=== PATIENT | female | born 1985 | race Caucasian/White ===

== ENCOUNTER → 2019-10-01 13:46 | Outpatient (REF) | payer OTHER, SELFPAY | LOC: ANHLAB 13:46 | PROVIDERS: PCP Physician Assistant; Visit Provider Nurse Practitioner | DX: R22.9 Localized swelling, mass and lump, unspecified (principal) | CPT/HCPCS: 88304 ==

== ENCOUNTER 2022-03-25 14:30 | Outpatient (CLI) | payer OTHER, SELFPAY ==
--- NOTE | 2022-04-12 21:39 | WPDHOMESLEEP ---
Sleep Study - Home Unattended Date of Study: 03/25/22 Ordering Provider: KARLA Seaman Interpreting Provider: Cielo Garcia DO Home Sleep Study Type: Watch PAT Height: 1.7 m Weight: 70.76 kg Body Mass Index: 24.4 Neck Circumference (inches): 13.25 Reason for Sleep Study Insomnia, daytime hypersomnia Sleep History The patient is a 36-year-old female with anxiety, depression, ADHD and insomnia that had a sleep study ordered by her primary care for evaluation of sleep apnea. *The patient did not complete the sleep intake forms.* [facility] Past Medical History Medical History ADHD Anxiety and depression Social History Social History Smoking status: Never smoker Alcohol intake: current Drinks per week: 7 Substance use: never Medications Home Medications Medication Instructions Recorded Confirmed Type trazodone 50 mg tablet 50 mg PO BID 10/01/19 06/10/21 History Sleep Procedure The sleep study was completed using WatchPAT a technically adequate device with seven channels: peripheral arterial tone, actigraphy, body position, snore, respiratory movement, pulse oximetry, sleep staging, and heart rate. Prior to using the device, the patient received verbal and written instructions for its application and was provided with the help desk phone number for additional telephonic instruction with 24-hour availability of qualified personnel to answer questions. The study was scored using CMS guidelines. Sleep Architecture The patient had a total recording time of 9 hours 32 minutes and a total sleep time of 7 hours 1 minutes. The sleep efficiency was 73.54%. Sleep latency was 23 minutes and REM latency was 240 minutes. The patient had 9 awakenings. The patient spent 83.6% of total sleep time in light sleep, 5.59% of total sleep time in deep sleep and 10.81% of total sleep time in REM sleep. The patient spent 329.5 minutes, 78.3% of total sleep time in the supine position. Respiratory Analysis The patient had an overall AHI of 1.2 and central apnea index of 0. The REM AHI was 2.7. The patient had an overall RDI (respiratory disturbance index) of 4.9. No Reza-Jung respirations were seen. Oximetry Data The patient had an average oxygen saturation of 96% with a minimum of 93% and maximum of 100%. The patient had 8 desaturation resulting in an oxygen desaturation index of 1.2. All of the desaturations were between 4-9%. The patient spent 0 minutes with an oxygen saturation less than 88%. Snoring Profile Snoring was present throughout the majority of the study. Cardiac Profile The patient had an average pulse of 70 beats per minute with a minimum pulse of 42 beats per minute and a maximum pulse of 106 beats per minute. Assessment and Plan Assessment and Plan (1) Daytime hypersomnia: Code(s): G47.10 - Hypersomnia, unspecified Status: Acute Assessment and Plan: The patient had an overall AHI of 1.2 with desaturation down to 93%. This is not consistent with sleep disordered breathing. However, due to the patient's significant daytime symptoms, I recommend that the patient have an in-lab Split Study for further evaluation. I recommend that the patient be given a hypnotic (Lunesta 2-3 mg or Ambien 10 mg) for the night of the sleep study due to the patient's insomnia. Data The data obtained during this sleep study is adequate for interpretation. Certification This sleep study has been reviewed by a board certified sleep medicine physician.
[2022-04-12 21:43] VITALS: BMI 24.4
== END 2022-03-29 14:41 | disposition home or self-care (01) ==
PROVIDERS: PCP Physician Assistant
DX: G47.9 Sleep disorder, unspecified (principal); G47.10 Hypersomnia, unspecified
CPT/HCPCS: 95800

== ENCOUNTER 2022-05-17 01:17 | Day surgery (SDC) | payer OTHER, SELFPAY ==
[2022-05-05 16:01] VITALS: BMI 24.7
[2022-05-17 11:14] VITALS: BP 112/66; PULSE 77; RESP 16; TEMP 36.8; O2SAT 99
--- NOTE | 2022-05-17 11:53 | PM.HPGS ---
History of Present Illness History of Present Illness Consent: Risks, benefits, and alternatives have been discussed and questions answered. Patient agrees to proceed with procedure. Chief complaint: hemorrhoid Narrative: Martine Villafana is a 36 year old female here for IRC of internal hemorrhoids, she had banding of hemorrhoids in the past Review of Systems Constitutional: Constitutional: Denies headache(s) and Denies weakness Eyes: Eyes: Denies blurry vision ENT: Reports Normal hearing present, Denies headache(s) and Denies neck pain Cardiovascular: Cardiovascular: Denies chest pain and Denies dyspnea Respiratory: Respiratory: Denies dyspnea Gastrointestinal: Gastrointestinal: Reports no additional gastrointestinal complaints Genitourinary: Genitourinary: Denies dysuria Musculoskeletal: Musculoskeletal: Denies neck pain Integumentary/Breasts: Skin/Breast: Denies dry skin Neurologic: Reports Normal hearing present, Denies headache(s) and Denies weakness Psychiatric: Psychiatric: Denies anxiety Endocrine: Endocrine: Denies change in body appearance Hematologic/Lymphatic: Hematologic/Lymphatic: Denies easy bleeding Allergic/Immunologic: Allergic/Immunologic: Denies urticaria PMF Past Medical History Medical History (Updated 05/17/22 @ 11:54 by Dino Heath MD) ADHD Anxiety and depression Hemorrhoid Social History Social History Smoking status: Never smoker Alcohol intake: current Drinks per week: 7 Substance use: never Substance use type: does not use Living arrangements: with family Additional living arrangements comments: spouse and 3 year old twins Spiritual care concerns: No Meds Home Medications and Allergies Home Medications Medication Instructions Recorded Confirmed Type trazodone 50 mg tablet 50 mg PO BID 10/01/19 05/17/22 History fluoxetine 10 mg capsule 10 mg PO DAILY 05/05/22 05/17/22 History lorazepam 0.5 mg tablet 0.5 mg PO PRN PRN Anxiety 05/05/22 05/17/22 History Allergies Allergy/AdvReac Type Severity Reaction Status Date / Time cephalexin Allergy Intermediate Hives Verified 05/17/22 11:10 Vital Signs Vital Signs - 24 hr 05/17/22 11:14 Temperature 98.2 F Pulse Rate 77 Respiratory Rate 16 Blood Pressure 112/66 Pulse Oximetry 99 Oxygen Delivery Room Air Exam Const: General: comfortable and no acute distress HENMT: Face/Nose/Sinus: Normal nares present Eyes: General: appearance normal, both eyes and all related structures Neck: Neck: no JVD Resp: Auscultation: clear to auscultation bilaterally Cardio: Rate: regular rate Rhythm: regular rhythm GI: Inspection: non-distended GI Palp: Yes Soft to palpation Skin: General skin exam: normal color Neuro: General: gait normal Speech: normal speech Extrem: General: normal to inspection Psych: Mental Status: mental status grossly normal Assessment and Plan Assessment and plan (1) Hemorrhoid: Code(s): K64.9 - Unspecified hemorrhoids Status: Acute Assessment and Plan: IRC
--- NOTE | 2022-05-17 11:54 | W.PM.PROC2 ---
Procedure Note - Detailed Date of Procedure 05/17/22 Pre-op Diagnosis hemorrhoid Post-op Diagnosis Same Procedure Performed IRC of internal hemorrhoids Surgeon Dino Heath MD Description of Procedure no fissure or lesions in anus, no bleeding. Then I introduced anoscope, found grade II internal hemorrhoids and advanced IRC probe, hemorrhoids treated 1.5 seconds x5
== END 2022-05-17 11:57 | disposition home or self-care (01) ==
PROVIDERS: PCP Physician Assistant; Visit Provider Internal Medicine Gastroenterology
PROC: (CPT 46930; principal; 2022-05-17 11:45)
DX: K64.1 Second degree hemorrhoids (principal); F90.9 Attention-deficit hyperactivity disorder, unspecified type; F41.9 Anxiety disorder, unspecified; F32.A Depression, unspecified
CPT/HCPCS: 46930

== ENCOUNTER 2022-06-20 08:00 | Outpatient (NON) | payer OTHER, SELFPAY | END 2022-06-20 08:01 | disposition home or self-care (01) | LOC: ANHLAB 06-22 13:15 | PROVIDERS: PCP Physician Assistant; Visit Provider Nurse Practitioner | DX: L72.0 Epidermal cyst (principal) | CPT/HCPCS: 88304 ==

== ENCOUNTER 2023-08-25 19:15 | Emergency (ER) | payer OTHER, SELFPAY ==
[2023-08-25 19:20] VITALS: BP 124/66; PULSE 105; RESP 18; TEMP 37.7; O2SAT 99
--- NOTE | 2023-08-25 19:58 | ED.URI ---
HPI - URI/Sore Throat General Chief Complaint: Upper Respiratory Infection Stated Complaint: cough/sob Time Seen by Provider: 08/25/23 19:30 Source: patient Mode of arrival: ambulatory Limitations: no limitations History of Present Illness HPI Narrative: 37-year-old female presents with complaint of cough, postnasal drainage for 12 days. No chest pain or shortness of breath. Taking DayQuil NyQuil cold and flu with no relief of symptoms. Afebrile. Denies pain. All systems reviewed and negative except as noted above. Related Data Home Medications Medication Instructions Recorded Confirmed lorazepam 0.5 mg tablet 0.5 mg PO PRN PRN Anxiety 05/05/22 08/25/23 fluoxetine 20 mg capsule 20 mg PO DAILY 08/25/23 08/25/23 Allergies Allergy/AdvReac Type Severity Reaction Status Date / Time cephalexin Allergy Intermediate Hives Verified 08/25/23 19:33 Review of Systems Review of Systems: CONSTITUTIONAL: Denies fever. Reports chills. Denies sweats. EYES: Denies visual changes, redness, or discharge. ENT: Reports rhinorrhea, congestion, postnasal drainage. Denies sore throat, or otalgia. CARDIOVASCULAR: Denies chest pain, palpitations, or edema. RESPIRATORY: Reports cough. Denies dyspnea. GASTROINTESTINAL: Denies abdominal pain, nausea, vomiting, or diarrhea. GENITOURINARY: Denies dysuria or hematuria. SKIN: Denies rash or itching. MUSCULOSKELETAL: Denies back pain, joint pain, or myalgia. NEUROLOGIC: Denies headache, numbness, or weakness. PSYCHIATRIC: Denies anxiety or depression. All other systems reviewed are negative, except as documented in HPI. [facility] Past Medical History Medical History (Updated 08/25/23 @ 19:43 by Lorenza Gordon NP) ADHD Anxiety and depression Hemorrhoid Social History Social History Smoking status: Never smoker Alcohol intake: current Drinks per week: 7 Substance use: never Substance use type: does not use Living arrangements: with family Additional living arrangements comments: spouse and 3 year old twins Spiritual care concerns: No Comments At time of signature, agree with nursing past medical, surgical, social and family history. There is no relevant family history pertinent to the presenting complaint. Exam Narrative: GENERAL: This is a well-nourished, well-developed patient, in no apparent distress. HEAD: normocephalic, atraumatic. EYES: PERRL. Sclera clear/white. Vision is grossly intact. EARS: External ears normal, auditory canals clear and without drainage, fluid bilateral TMs without erythema or perforation. Hearing grossly intact. NOSE: External nose normal with clear nasal drainage, erythema to bilateral nares without significant swelling. THROAT: Mucous membranes moist, clear postnasal drainage without erythema or swelling, no exudates NECK: Neck supple, non-tender without lymphadenopathy, masses or thyromegaly. CARDIOVASCULAR: Regular rate and rhythm without murmurs, gallops, or rubs. RESPIRATORY: Clear to auscultation. Breath sounds equal bilaterally. No wheezes, rales, or rhonchi. SKIN: warm, Dry, intact with no suspicious lesions or rash, good texture and turgor. NEURO: awake, alert, and oriented to person, place and time. There were no obvious focal neurologic abnormalities. EXTREMITIES: No joint tenderness, effusion, or edema noted. Course Course Level of Care: Express Care Visit Vital Signs Vital signs: Vital Signs Temperature 37.7 C H 08/25/23 19:20 Pulse Rate 105 H 08/25/23 19:20 Respiratory Rate 18 08/25/23 19:20 Blood Pressure 124/66 08/25/23 19:20 Pulse Oximetry 99 08/25/23 19:20 Oxygen Delivery Room Air 08/25/23 19:20 Temperature 37.7 C H 08/25/23 19:20 Pulse Rate 105 H 08/25/23 19:20 Respiratory Rate 18 08/25/23 19:20 Blood Pressure 124/66 08/25/23 19:20 Pulse Oximetry 99 08/25/23 19:20 Oxygen Delivery Room Air 08/25/23
== END 2023-08-25 19:45 | disposition home or self-care (01) ==
PROVIDERS: Emergency Provider Nurse Practitioner Family; PCP Physician Assistant
DX: H65.03 Acute serous otitis media, bilateral (principal); J20.9 Acute bronchitis, unspecified; F41.9 Anxiety disorder, unspecified; F32.A Depression, unspecified; Z79.899 Other long term (current) drug therapy
CPT/HCPCS: 99213; G0463

== ENCOUNTER 2024-02-06 01:08 | Day surgery (SDC) | payer OTHER, SELFPAY ==
[2024-01-19 12:06] VITALS: BMI 25.0
[2024-02-06 12:27] VITALS: BP 102/67; PULSE 83; RESP 18; TEMP 36.2; O2SAT 98
--- NOTE | 2024-02-06 12:35 | P.PNAN_ITS ---
Anes - Initial Pre Proc Eval Procedure: Operation Date: 02/06/24 14:00 Proposed Procedures p Esophagogastroduodenoscopy & Colonoscopy - Dino Heath MD Date/Time: 02/06/24 12:35 Surgeon: Dino Heath MD Pre Op Diagnosis: Melena, GERD, Abdominal pain Patient Data Age: 38 Gender: F Height: 1.7 m Weight: 69.6 kg Last Vital Signs Temp 36.2 C L 02/06/24 12:27 Pulse 83 02/06/24 12:27 Resp 18 02/06/24 12:27 BP 102/67 02/06/24 12:27 Pulse Ox 98 02/06/24 12:27 O2 Del Method Room Air 02/06/24 12:27 Allergies Allergy/AdvReac Type Severity Reaction Status Date / Time cephalexin Allergy Intermediate Hives Verified 02/06/24 12:26 Home Medications Medication Instructions Recorded Confirmed Type lorazepam 0.5 mg tablet 0.5 mg PO PRN PRN Anxiety 05/05/22 01/19/24 History fluoxetine 20 mg capsule 20 mg PO DAILY 08/25/23 01/19/24 History dextroamphetamine-amphetamine 5 mg 5 mg PO BID PRN Anxiety 12/12/23 01/19/24 History tablet (Adderall) semaglutide 1 mg/dose (4 mg/3 mL) 1 mg subcut WEEKLY 01/19/24 01/19/24 History subcutaneous pen injector (Ozempic) Patient hx anesthesia problems: none Family hx anesthesia problems: none Results Review: All pre-operative results and documents have been reviewed as part of the pre- operative evaluation. [facility] Past Medical History Medical History ADHD Anxiety and depression Hemorrhoid Social History Social History Smoking status: Never smoker Alcohol intake: current Drinks per week: 2 Substance use: never Substance use type: does not use Living arrangements: other Additional living arrangements comments: with sp Spiritual care concerns: No Anes - Eval Final PreProcedure Day of Procedure 02/06/24 12:35 Patient weight: normal Heart: regular rate and rhythm Lungs: clear to auscultation Airway: Mallampati scale class II Neurological: alert and oriented Last oral intake: >/= 8 hours ASA classification: II Emergent: no Anesthetic plan: proceed Anesthesia type and monitoring: general GIVS and standard monitoring Results Review: All pre-operative results and documents have been reviewed as part of the pre- operative evaluation. Informed Consent: The patient's anesthetic plan and its attendant risks and benefits were discussed with the patient/family/POA. Questions were solicited and answers provided to the satisfaction of the patient/family/POA.
[2024-02-06] MEDS: LACTATED RINGERS 1,000 ML 150 ML IV CONT (12:47)
--- NOTE | 2024-02-06 12:55 | PM.HPGS ---
History of Present Illness History of Present Illness Consent: Risks, benefits, and alternatives have been discussed and questions answered. Patient agrees to proceed with procedure. Chief complaint: Melena, GERD, Abdominal pain Narrative: Martine Villafana is a 38 year old female with gerd using omeprazole only as needed, never had egd. Also intermittent rectal bleeding, last colonoscopy 4 years with hemorrhoids Review of Systems Review of Systems: All systems reviewed & are unremarkable except as noted in HPI and below PMFSH Past Medical History Medical History (Updated 02/06/24 @ 12:56 by Dino Heath MD) ADHD Anxiety and depression GERD (gastroesophageal reflux disease) Hemorrhoid Social History Social History Smoking status: Never smoker Alcohol intake: current Drinks per week: 2 Substance use: never Substance use type: does not use Living arrangements: other Additional living arrangements comments: with sp Spiritual care concerns: No Meds Home Medications and Allergies Home Medications Medication Instructions Recorded Confirmed Type lorazepam 0.5 mg tablet 0.5 mg PO PRN PRN Anxiety 05/05/22 01/19/24 History fluoxetine 20 mg capsule 20 mg PO DAILY 08/25/23 01/19/24 History dextroamphetamine-amphetamine 5 mg 5 mg PO BID PRN Anxiety 12/12/23 01/19/24 History tablet (Adderall) semaglutide 1 mg/dose (4 mg/3 mL) 1 mg subcut WEEKLY 01/19/24 01/19/24 History subcutaneous pen injector (Ozempic) Allergies Allergy/AdvReac Type Severity Reaction Status Date / Time cephalexin Allergy Intermediate Hives Verified 02/06/24 12:26 Vital Signs Vital Signs - 24 hr 02/06/24 12:27 Temperature 97.1 F L Pulse Rate 83 Respiratory Rate 18 Blood Pressure 102/67 Pulse Oximetry 98 Oxygen Delivery Room Air Exam Const: General: comfortable and no acute distress HENMT: Face/Nose/Sinus: Normal nares present Eyes: General: appearance normal, both eyes and all related structures Neck: Neck: no JVD Resp: Auscultation: clear to auscultation bilaterally Cardio: Rate: regular rate Rhythm: regular rhythm GI: Inspection: non-distended GI Palp: Yes Soft to palpation Skin: General skin exam: normal color Neuro: General: gait normal Speech: normal speech Extrem: General: normal to inspection Psych: Mental Status: mental status grossly normal Assessment and Plan Assessment and plan (1) Lower GI bleed: Code(s): K92.2 - Gastrointestinal hemorrhage, unspecified Status: Acute Assessment and Plan: colonoscopy (2) Hematochezia: Code(s): K92.1 - Melena Status: Acute (3) GERD (gastroesophageal reflux disease): Code(s): K21.9 - Gastro-esophageal reflux disease without esophagitis Status: Acute Assessment and Plan: egd
--- NOTE | 2024-02-06 13:14 | SUR.OPER ---
EGD end 1307 and colon start 1312.
[2024-02-06 13:24] VITALS: BP 91/56; PULSE 69; RESP 23; O2SAT 100
[2024-02-06 13:34] VITALS: BP 99/65; PULSE 66; RESP 21; O2SAT 100
[2024-02-06 13:44] VITALS: BP 97/69; PULSE 71; RESP 18; O2SAT 100
== END 2024-02-06 13:54 | disposition home or self-care (01) ==
PROVIDERS: PCP Physician Assistant; Referring Provider Nurse Practitioner; Visit Provider Internal Medicine Gastroenterology
PROC: 0DJ08ZZ Inspection of Upper Intestinal Tract, Via Natural or Artificial Opening Endoscopic (ICD-10-PCS; CPT 43235; principal; 2024-02-06 14:00)
DX: K92.1 Melena (principal); K21.9 Gastro-esophageal reflux disease without esophagitis; R10.9 Unspecified abdominal pain; K29.70 Gastritis, unspecified, without bleeding; K64.8 Other hemorrhoids; F90.9 Attention-deficit hyperactivity disorder, unspecified type; F41.8 Other specified anxiety disorders
CPT/HCPCS: 43239; 45378; 88305; J2001; J2704; J7120

== ENCOUNTER 2025-01-24 13:02 | Emergency (ER) | payer OTHER, SELFPAY ==
--- OUTSIDE RECORDS SUMMARY | 2025-01-24 13:06 | XMS_ITS | Referral Summary ---
Author Organization [facility] Address [address] [place] [address] Care Team Providers Care Crisis Therapist Name Role Phone Jerri Ventura Primary Care Pr ovider Allergies Active Allergy Reactions Criticality Noted Date Comments Cephalexin Hives,Rash Medium 12/27/2016 Medications melatonin 5 mg capsule Take by mouth nightly Active levonorgestrel (MIRENA INTRAUTERINE) Mirena Active buPROPion (WELLBUTRIN) 75 mg tablet 9 Active dextroamphetami ne-amphetamine (ADDERALL) 10 mg tablet Take 1 tablet (10 mg total) by mouth 2 (two) times a day 1 Active LORazepam (ATIVAN) 0.5 mg tablet TAKE 1 TABLET 3 TIMES A DAY BY ORAL ROUTE NEEDED. 2 Active FLUoxetine (PROzac) 20 mg capsule Take by mouth daily 2 Active meloxicam (MOBIC) 15 mg tablet TAKE 1 TABLET (15 MG TOTAL) BY MOUTH DAILY. 30 tablet 3 Active HYDROcodone-nemo taminophen (NORCO) 5-325 mg per tablet 3 Active famotidine (PEPCID) 20 mg tablet famotidine 20 mg tablet TAKE 1 TABLET BY MOUTH TWICE A DAY Active citalopram (CeleXA) 20 mg tablet 3 Active omeprazole (PriLOSEC) 40 mg capsule 3 Active flibanserin 100 mg tablet Take 100 mg by mouth nightly Take one tablet nightly, stop after 8 weeks if no improvement 30 tablet 11 Active Active Problems Problem Noted Date Diagnosed Date Generalized anxiety disorder 11/30/2022 Major depressive disorder 11/30/2022 Tear of articular cartilage of right knee as cur rent injury 07/27/2022 Sleep disorder 04/08/2015 Attention deficit hyperactivity disorder 015 Smoking 08/26/2014 Resolved Problems Problem Noted Date Diagnosed Date Resolved Date Upper respiratory infection 05/08/2023 12/16/2023 Fatigue 11/30/2022 12/16/2023 Candidiasis of vagina 09/15/20222023 Right knee pain 06/29/2022 12/16/2023 Cough 05/13/2022 12/16/2023 Acute sinusitis 04/08/2022 12/16/2023 Metatarsalgia 01/17/2022 12/16/2023 Pain in lower limb 01/17/2022 Pruritic disorder 11/01/2021 12/16/2023 Rash 11/01/2021 12/16/2023 Mixed anxiety and depressive disorder 09/24/2019 12/16/2023 Supervision of other normal , antepartum 06/26/2018 06/29/2018 Overview (06/26/2018): [] 1hr GCT at 24-28wks [] Flu Shot [] Tdap (27-36wks) [] Genetic Screening: [] Rhogam (if Rh neg): [] GBS at 36 wks: [] [] control method: Dysmenorrhea 04/08/2015 12/16/2023 Dyspareunia 04/08/2015 12/16/2023 Menorrhagia 04/08/2015 12/16/2023 Pelvic pain in female 04/08/20152023 Procreative management 04/08/201512/15 Anxiety 08/26/2014 12/16/2023 Dichorionic diamniotic twin in third trimester 12/16/2023 37 weeks gestation of 12/16/2023 Breech presentation, no version 12/16/2023 Social History Tobacco Use Types Packs/Day Years Used Date Smoking Tobacco: Former Smokeless Tobacco: Never Alcohol Use Standard Drinks/Week Comments Never 0 (1 standard drink = 0.6 oz pur e alcohol) AUDIT-C Answer Date Recorded Frequency of Alcohol Consumption Never 11/08/2018 Average Number of Drinks Not on file 019 Frequency of Binge Drinking Not on file 10/13 Comments No Sex and Gender Information Value Date Recorded Sex Assigned at Not on file Legal Sex Female 9:37 AM PROPOSAL LEAD WRITER Gender Identity Not on file Sexual Orientation Not on file Last Filed Vital Signs Vital Sign Reading Time Taken Comments Blood Pressure 120/70 04/02/2024 4:02 PM CDT Pulse 76 12/24/2020 9:06 AM CDT Temperature 36.9 C (98.4 F) 01/07/2019 8:45 AM CDT Respiratory Rate 18 01/07/2019 8:45 AM CDT Oxygen Saturation 97% 01/06/2019 7:30 PM CDT Inhaled Oxygen Concentration - - Weight 68 kg (150 lb) 04/02/2024 4:02 PM CDT Height 170.2 cm (5' 7) 06/29/2022 2:13 PM PROPOSAL LEAD WRITER Body Mass Index 23.49 06/29/2022 2:13 PM PROPOSAL LEAD WRITER Plan of Treatment Not on file [place] [address] [facility] CHOICE PLUS [facility] CHOICE [place] [address] Advance Directives For more information, please contact: [phone] * Full Code (Latest Code Status on File) Date Activated Date Inactivated Comments 01/05/2019 2:45 PM 01/07/2019 4:48 PM * Full Code Date Activated Date Inactivated Comments 01/04/2019 5:23 PM 01/05/2019 2:45 PM Full CPR in case of cardiopulmonary arrest Care Teams Crisis Therapist Relationship Specialty Start Date End Date Jerri Ventura PA PCP - General Physician Mottle Lay Up Operator 01/08/20
--- OUTSIDE RECORDS SUMMARY | 2025-01-24 13:06 | XMS_ITS | Clinical Summary ---
Author Organization [facility] Address [address] [place] [address] Care Team Providers Care Animal Hospital Clerk Name Role Phone Jerri Ventura Primary Care [...] of 12/16/2023 Breech presentation, no version 12/16/2023 Surgical History Surgery Date Site/Laterality Comments APPENDECTOMY 08/14/2006 - 08/13/2007 SINUS SURGERY 08/14/2015 - 08/13/2016 PRE-SACRAL NEURECTOMY 08/14/2016 - 08/13/2017 laparoscopic TONSILLECTOMY 08/14/2001 - 08/13/2002 LAPAROSCOPY 08/14/2006 - 08/13/2007 Cautery of endometriosis PELVIC LAPAROSCOPY 08/14/2016 - 08/13/2017 Bilateral Excision endo, adhesiolysis, presacral neurectomy, cysto-spe an adhesiolysis as w as a presacral neurectomy by a specialist in endometriosis. LAPAROSCOPY FOR ECTOPIC 08/14/2014 - 08/13/2015 Left OVARIAN ectopic-ovary salvaged OPERATIVE HYSTEROSCOPY 02/11/2018 - 03/13/2018 IUD removal Medical History Medical History Date Comments Depression hx of depression and anxiety Endometriosis Migraine Anxiety ADD (attention deficit disorder) Family history of breast cancer History of ectopic Lef t ovarian ectopic treated with methotrexate then ovarian sparing surgery History of endometriosis Diagnos ed and cauterized 2006, excised 2016 Family History Medical History Relation Name Comments Breast cancer Maternal Grandmother Diabetes Maternal Grandmother Breast cancer Mother at 65 fro m CHF Diabetes Mother Heart failure Mother Breast cancer Mother's Sister Diabetes Mother's Sister Diabetes Paternal Grandfather Relation Name Status Comments Maternal Grandmother Mother Mother's Sister Paternal Grandfather Social History Tobacco Use Types Packs/Day Years [...] on file Legal Sex Female 9:37 AM INFORMIX DEVELOPER Gender Identity Not on file Sexual Orientation Not on file Obstetrics History Para Term AB IAB SAB Ectopic Multiple Livin g Live Births 2 1 1 1 1 1 2 2 Date Outcome GA Total Labor Labor/2nd/3rd Weight Sex Type Anes PTL Antionette A1 A5 Name Clin 2014 Ectopic 2018 Term 37w 4d 21h 44m 20h 15m/1h 17m/0h 12m 2.6 kg (5 lb 11.7 oz) M Vag-S pont Epidur al N Livin g 9 9 HUEY N,ONE BOYCL ARIND Steve Russell MD Complications:None Delivery Location:[facility] ([facility]) 2018 Term 37w 4d 21h 44m 20h 15m/1h 19m/0h 10m 2.48 kg (5 lb 7.5 oz) F Vag-B reech Epidur al N Livin g 9 9 HUEY N,TWO GIRLC AUGUSTO Steve Dennis MD Complications:None Delivery Location:[facility] Facil [facility] ([facility]) Comments:double footli ng breech extraction of twin 2 Comments # 1: 2014 left ova gabriele ectopic txed with MTX then laparoscopic excision of ectopic with ovarian sparing . # 2: 01/05/2019 37 4/7 weeks, DA/DC twins, SOOL, #1- , boy, Mitchell, 5#12, #2- double footling breech extraction, Ruben, 5#7, epidural, DW at [facility]. Last Filed Vital Signs Vital Sign Reading [...] 170.2 cm (5' 7) 06/29/2022 2:13 PM INFORMIX DEVELOPER Body Mass Index 23.49 06/29/2022 2:13 PM INFORMIX DEVELOPER Plan of Treatment Health Maintenance Due Date Last Done Comments Breast Cancer Screening-Mammogram 1987 Cervical Cancer Screening 1987 Hepatitis C Screening 1987 Varicella Vaccines (1 of 2 - 13+ 2-dose series) 2000 Hepatitis B Screening 2005 Regular Well Visit/Exam 18-64 2005 Depression Screening 01/07/2020 01/06/2019 DTaP/Tdap/Td Vaccine (2 - Td or Tdap) 07/26/2023 07/26/2013 Influenza Vaccine (Season Ended) 2025 07/25/2022, 06/19/2020, 06/20/2019, Additional history exists HPV Vaccines Aged Out No longer eligi ble based on patient's age to complete this topic Pneumococcal vaccine <65 Aged Out No longer eligible based on patient's age to complete this topic Insurance [facility] HMO/PPO Address: [address] [address] [place] [address] [facility] CHOICE [facility]US [facility] HMO/PPO Address: [address] [address] [place] [address] [facility] CHOICE [facility] HMO/PPO Address: [address] [address] [place] [address] [facility] HMO/PPO Address: [address] [address] [place] [address] Advance Directives For more information, please contact: [phone] * Full Code (Latest Code Status on File) Date Activated Date Inactivated Comments 01/05/2019 2:45 PM 01/07/2019 4:48 PM * Full Code Date Activated Date Inactivated Comments 01/04/2019 5:23 PM 01/05/2019 2:45 PM Full CPR in case of cardiopulmonary arrest Care Teams Animal Hospital Clerk Relationship Specialty Start Date End Date Jerri Ventura PA PCP - General Physician Surgical Pathologist 01/08/20
--- OUTSIDE RECORDS SUMMARY | 2025-01-24 13:06 | XMS_ITS | Data Portability ---
Author Organization [facility] Anna Marie Christensen Address [address] [place] [address] Assessment Encounter Date Assessment Date Assessment LastModified by Organization Details LastModified Time 05/07/2024 05/07/2024 pap smear 2023: Dr. Alonso at [facility]. eye exam: overdue dental exam: UTD labs UTD with DR. Lagos. [email or web address] Not available 05/07/2024 10:30:33 Plan of Treatment Reminders Order Date Submit Date Provider Last Modified By Organization Details Last Modified Time Details Appointments None recorded. Lab CMP, serum or plasma 2023 024 [email or web address] [facility], [address], [place], [address], 5 15:25:00 CBC w/ auto diff 2023 024 [email or web address] [facility], [address], [place], [address], 5 15:25:05 vitamin B12 + folate, serum or blood 2023 024 [email or web address] [facility], [address], [place], [address], 5 15:24:53 lipid panel, serum 2023 024 [email or web address] [facility], [address], [place], [address], 5 15:25:14 HbA1c (hemoglobin A1c), blood 2023 024 [email or web address] [facility], [address] [place], [address], 5 15:25:10 Referral None recorded. Procedures None recorded. Surgeries None recorded. Imaging None recorded. Medication Orders fluoxetine 40 mg capsule 2023 024 [id number], [address] [place], [address], 4 10:30:56 Patient TargetsNo targets recorded. Patient InstructionsNo instructions recorded. Reason for Referral None Reported. Problems Name Problem SNOMED Code Status Onset Date Resolution Date Notes Provider Name and Address Organization Details Recorded Time Body mass index 20-24 - normal 858744441 Active 2023 Heidi Javed MA null, [facility] 4 10:04:51 Positive screening for depression on PHQ-9 (Patient Health Questionnai re 9) 0880826812237 00 Active 2023 DEXTER Seaman Attn: Accountin g,[address] [place], [address], [facility] 4 23:47:38 Long-term drug therapy Active 2023 DEXTER Seaman Attn: Accountin g,[address] [place], [address], [facility] 4 23:47:39 Generalized anxiety disorder 66465284 Active 2023 DEXTER Seaman Attn: Accountin g,[address] [place], [address], [facility] 4 23:48:04 Problem Notes None recorded. Procedures Surgical History Date Name Laterality Status Provider Name and Address Organization Details Recorded Time Appendectomy completed ALBERTO Ashby [facility] 05/07/2024 10:03:48 Tonsillectomy completed Heidi Javed MA [facility] 05/07/2024 10:03:52 D & c after delivery completed Heidi Javed MA [facility] 05/07/2024 10:04:05 Imaging Results None recorded. Procedure Notes None recorded. Medical Equipment None Reported. Allergies Allergen ID Allergen Name Allergen Category Reaction Reaction Severity Criticality Documentation Date Start Date Code Code System Note Provider Name and Address Organization Details Recorded Time 412044 cephalexi n medicatio n Not available Not available Not available 05/07/2024 2231 RxNorm Heidi Javed MA null, [facility] 10:06:12 Medications Name Sig Start Date Stop Date Status Note LastModified by Organization Details LastModified Time fluoxetine 40 mg capsule Take 1 capsule every day by oral route. active Not Available Not Available No t Available clobetasol 0.05 % topical cream PLEASE SEE ATTACHED FOR DETAILED DIRECTION S active Not Available Not Available No t Available dextroamphe tamine sulfate 10 mg tablet Take 1 tablet twice a day by oral route. 05/07 completed prn Not Available Not Available Not Available fluoxetine 20 mg capsule TAKE 1 CAPSULE BY MOUTH EVERY DAY 05/07 completed Not Available Not Available Not Available Xyzal 5 mg tablet Take 1 tablet every day by oral route. active Not Available Not Available No t Available testosteron e 200 mg implant pellet Take by implantat ion route. active Not Available Not Available No t Available Ozempic 1 mg/dose (4 mg/3 mL) subcutaneou s pen injector Inject by subcutane ous route. 05/07 completed Not Available Not Available Not Available semaglutide (weight loss) 1 mg/0.5 mL subcutaneou s pen injector Inject 1 mg every week by subcutane ous route. active Not Available Not Available No t Available Vitals Date Recorded Systolic blood pressure Diastolic blood pressure Provider Name and Address Organization Details Last Updated DateTime 05/07/2024 90 mm[Hg] 70 mm[Hg] DEXTER Seaman Attn: Accounting[address] [place], [address], [facility] 05/07/2024 10:28:37 Date Recorded Body weight Body mass index (BMI) Body height Oxygen saturation Oxygen saturation in Arterial blood by Pulse oximetry Heart rate Respiratory rate Systolic blood pressure Diastolic blood pressure Provider Name and Address Organization Details Last Updated DateTime 4 77575.3 8 g 22.6 kg/m2 170.18 cm 99 % 99 % 91 /min 18 /min 120 mm[Hg] 72 mm[Hg] Heidi Javed MA [facility] 10:06:05 Social History Question Answer Notes LastModified by Organizat ion Details LastModified Time Tobacco Smoking Status Former Smoker quit 6 years ago Heidi Javed MA null, [facility] 05/07/2024 10:03:18 Do You Have An Advance Directive? No Information not available 05/07/2024 Are You Blind Or Do You Have Difficulty Seeing? No Information not available 05/07/2024 What Is Your Level Of Caffeine Consumption? Moderate Information not available 05/07/2024 In The 14 Days Before Symptom Onset, Have You Had Close Contact With A Laboratory-confir med COVID-19 While That Case Was Ill? No Information not available 05/07/2024 In The 14 Days Before Symptom Onset, Have You Had Close Contact With A Person Who Is Under Investigation For COVID-19 While That Person Was Ill? No Information not available 05/07/2024 Have You Been To An Area Known To Be High Risk For COVID-19? No Information not available 05/07/2024 Are You Deaf Or Do You Have Serious Difficulty Hearing? No Information not available 05/07/2024 What Type Of Diet Are You Following? REGULAR Information not available 05/07/2024 Are There Any Guns Present In Your Home? No Information not available 05/07/2024 What Was The Date Of Your Most Recent Tobacco Screening? 05/07/2024 Information not available 05/07/2024 What Is Your Current Pack Years? 10packyears Information not available 05/07/2024 Do You Use Your Seat Belt Or Car Seat Routinely? Yes Information not available 05/07/2024 Do You Have Smoke And Carbon Monoxide Detectors In Your Home? Yes Information not available 05/07/2024 How Much Tobacco Do You Smoke? No Information not available 05/07/2024 Do You Use Sunscreen Routinely? Yes Information not available 05/07/2024 Has Tobacco Cessation Counseling Been Provided? No Information not available 05/07/2024 How Many Years Have You Smoked Tobacco? 5 Information not available 05/07/2024 Sex: Female Functional Status Question Answer Note LastModified by Organizat ion Details LastModified Time Do you use any illicit or recreational drugs? No Information not available 05/07/2024 Do you or have you ever used any other forms of tobacco or nicotine? No Information not available 05/07/2024 What is your level of alcohol consumption? Moderate Information not available 05/07/2024 Are you currently employed? Yes Information not available 05/07/2024 Are you able to care for yourself? 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 Occasional Information not available 05/07/2024 Mental Status None recorded. Family History Nothing Reported. Medical History No medical history recorded. Gynecological History Statement/Question Response Menses Monthly N Current Control Method None Obstetrics History GPAL:G 3 P 2 0 0 2 Type Value Multiple Births 1 Full Term 2 Induced 0 Spontaneous 0 Premature 0 Living 2 Ectopics 0 Total 3 Past Encounters Encounter ID Performer Location Encounter Start Date Encounter Closed Date Diagnosis/Indication Diagnosis SNOMED-CT Code Diagnosis ICD10 Code Diagnosis Note [id number] Junito Chen MD [facility] [address] [place] [address] 05/07/2024 09:52:02 05/07/2024 10:35:53 Body mass index 20-24 - normal 512501563 Z68.22 BMI is 22.6, semaglutid e compound is really not needed at this time Generalize d anxiety disorder 41446855 F41.1 Boost to fluoxetine 40 mg daily for added at generalize d anxiety management Cholesterol screening 27 0637580 Z13.220 Fasting lipid panel due Diabetes m ellitus screening 897521463 Z13.1 Annual diabetes screening ordered Long-term drug therapy 866612755 Z79.899 cmp, cbc and b12, folate labs are due Adult heal th examination 041050261 Z00.01 Annual wellness exam completed Positive s creening for depression on PHQ-9 (Patient Health Questionnaire 9) 8396063425 12229 Z13.31 score 19, fluoxetine increased to 40 mg on exam today Health Concerns Section Related Observation LastModified by Organization Detai ls LastModified Time None Recorded Concern Status LastModified by Organization Details LastModified Time None Recorded Advance Directives Directive N: Payers Insurance Date Sequence Insurance Name Policy Number Policy Fraser Covered Member ID Fraser Member ID Guarantor Name 05/15/2024 1 [facility] [id number] Littlejohn Broderick [id number] Martine Villafana Notes Date Note Type Note Provider Name and Address Organization Details Recorded Time 05/07/2024 text/html Anxiety/Depressi on Reported bypatient.Notes:Dexter cervantes has underlying anxiety is always elevated but a little bit higher than normal. She is interested in increasing her SSRI therapy dose. Patient is here for her wellness exam and labs. She reports she is taking compound semaglutide and testosterone pellets from a weight loss center DEXTER Seaman Attn: Accounting[address] [facility], [place], [address], [facility] 05/13/2024 23:48:27 OBGyn Episode No OBEpisode recorded.
--- OUTSIDE RECORDS SUMMARY | 2025-01-24 13:06 | XMS_ITS | Clinical Summary ---
Author Organization [facility] Address [address] [place] [address] Care Team Providers Care Sewing Machine Tester Name Role Phone Chalo Bartlett MD Primary Care Provider Source Comments [facility],non-owned Affiliates and Associated Physician Practices is amultiple site organization consisting of ambulatory clinics and hospital sitesin [place], [place], [place] and [place]. This disclosure is being madepursuant to the Care Everywhere program and may not contain all information available regarding this patient. Last updated 18.[facility] Allergies Active Allergy Reactions Criticality Noted Date Comments Cephalexin Rash Medium 12/27/2016 Medications * Be aware that medications may not be up to date on this document. Alwaysverify current medications with the patient. levonorgestrel (MIRENA) 20 MCG/24HR IUD 1 Device by Intrauterine route once. Active meloxicam (MOBIC) 15 MG tabletIndicatio ns:Endometriosi s Take 1 Tab by mouth once daily 30 Tab 6 Active Additional Information Patient not taking.Reported on 12/27/2016 amphetamine-dex troamphetamine (ADDERALL) 10 MG tabletIndicatio ns:Attention Deficit Disorder (Inactive) Take 1 Tab by mouth 2 times daily Reasons: Attention Deficit Disorder 60 Tab 7 Active fluconazole (DIFLUCAN) 150 MG tablet Take one tab now, may repeat in one week as needed 2 Tab 7 Active Active Problems Problem Noted Date Diagnosed Date Anxiety 08/26/2014 ADD (attention deficit disorder) 08/26/2014 Smoking 08/26/2014 Overview (11/13/2024): IMO 11/13/2024 Resolved Problems Problem Noted Date Diagnosed Date Resolved Date Furuncle of flank 09/23/2014 06/14/2016 Immunizations Immunization Administration Dates Next Due INFLUENZA VACCINE 06/14/2014 INFLUENZA VACCINE, QUADR. (F LUZONE; FLULAVAL; FLUARIX; AFLURIA QUADRIVALENT; 6MO+), 0.5 ML (IIV4) 06/14/2016 TDAP (7yrs+) 07/26/2013 Family History Medical History Relation Name Comments Diabetes Mother Cancer Other Of sinuses, ski n, stomach, and breast. 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 Not on file Not on file Last Filed Vital Signs Vital Sign Reading Time Taken Comments Blood Pressure 108/64 12/27/2016 10:36 AM CDT Pulse 89 12/27/2016 10:36 AM CDT Temperature 36.7 C (98.1 F) 12/27/2016 10:36 AM CDT Respiratory Rate 16 04/16/2014 6:44 PM CDT Oxygen Saturation 98% 12/27/2016 10:36 AM CDT Inhaled Oxygen Concentration - - Weight 67.1 kg (148 lb) 12/27/2016 10:36 AM CDT Height 170.2 cm (5' 7) 12/27/2016 10:36 AM CDT Body Mass Index 23.18 12/27/2016 10:36 AM CDT Plan of Treatment Health Maintenance Due Date Last Done Comments HIV SCREENING 2002 HEPATITIS C SCREENING 08/29/2005 HEPATITIS B VACCINE (1 of 3 - 19+ 3-dose series) 2006 PNEUMOCOCCAL VACCINE (1 of 2 - PCV) 2006 PAP SMEAR 09/14/2015 09/14/2012 (Previously completed) DTAP/TDAP/TD VACCINES (2 - T d or Tdap) 07/26/2023 07/26/2013 COVID-19 VACCINE (1 - 2023-2 5 season) 2024 DEPRESSION SCREENING 08/14/2024 INFLUENZA VACCINE (Season Ended) 2025 06/19/2020, 06/14/2016, 06/14/2014 ZOSTER VACCINE (1 of 2) 2037 HIB VACCINE Aged Out No longer eligi ble based on patient's age to complete this topic HPV VACCINE Aged Out No longer eligi ble based on patient's age to complete this topic MENINGOCOCCAL (Group B) VACCINE SHARED DECISION-MAKING Aged Out No longer eligible based on patient's age to complete this topic MENINGOCOCCAL GROUPS A/C/Y/W VACCINE Aged Out No longer eligible b ased on patient's age to [place] [address] [place] [address] [facility] * Guarantor: AMY VILLAFANA Account Type Relation to Patient Date of Phone Billing Address Personal/Family [address] [place] [address] SELF PAY NO INSURANCE Member Subscriber Plan / Payer (Ef fective for All Dates) Name:Amy Villafana Member ID:Not on file Relation to Subscriber:Not on file Name:AMY VILLAFANA Subscriber ID:Not on file Address: [address] [place] [address] Payer ID:Not on file Group ID:Not on file Type:Self Pay Address: [facility] [place] [address] * Guarantor: AMY VILLAFANA Account Type Relation to Patient Date of Phone Billing Address Personal/Family [address] [place] [place], [facility] SELF PAY NO INSURANCE Member Subscriber Plan / Payer (Ef fective for All Dates) Name:Amy Villafana Member ID:Not on file Relation to Subscriber:Not on file Name:AMY VILLAFANA Subscriber ID:Not on file Address: [address] [place], [address] Payer ID:Not on file Group ID:Not on file Type:Self Pay Address: [facility] * Guarantor: AMY VILLAFANA Account Type Relation to Patient Date of Phone Billing Address Personal/Family [address] [place], [address] SELF PAY NO INSURANCE Member Subscriber Plan / Payer (Ef fective for All Dates) Name:Amy Villafana Member ID:Not on file Relation to Subscriber:Not on file Name:AMY VILLAFANA Subscriber ID:Not on file Address: [address] [place], [facility] Payer ID:Not on file Group ID:Not on file Type:Self Pay Address: [facility] Care Teams Sewing Machine Tester Relationship Specialty Start Date End Date Chalo Bartlett MD PCP - General Internal Medicine 08/25/14
--- OUTSIDE RECORDS SUMMARY | 2025-01-24 13:06 | XMS_ITS | Data Portability ---
Author Organization [facility], Main Office Address [address] [place] [address] Assessment No assessment recorded. Plan of Treatment Reminders Order Date Submit Date Provider Last Modified By Organization Details Last Modified Time Details Appointments None recorded. Lab lipid panel, serum 2022 023 [email or web address] [facility], [address] [place] [address], [address], 3 10:03:11 TSH + free T4, serum 2022 023 [email or web address] [facility], [address] [place] [address], [address], 3 10:03:10 CBC w/ auto diff 2022 023 [email or web address] [facility], [address] [place] [address], [address], 3 10:03:10 CMP, serum or plasma 2022 023 [email or web address] [facility], [address] [place] [address], [address], 3 10:03:10 iron + TIBC + ferritin, serum 2022 023 [email or web address] [facility], [address] [place] [address], [address], 3 10:03:11 thyroid peroxidase (tpo) Ab, serum 2022 023 [email or web address] [facility], [address] [facility] [address], [place], [address], 3 10:03:11 thyroglobul in Ab, serum 2022 023 [email or web address] [facility], [address] [facility] [address], [place], [address], 3 10:03:11 hormone panel, serum or plasma 2022 023 [email or web address] [facility], [address] [facility] [address], [place], [address], 3 10:03:11 Referral None recorded. Procedures None recorded. Surgeries None recorded. Imaging None recorded. Medication Orders citalopram 20 mg tablet 2022 023 [id number], [address] [place], [address], 3 15:20:23 Patient TargetsNo targets recorded. Patient InstructionsNo instructions recorded. Reason for Referral None Reported. Results Created Date Observation Date Name Description Value Unit Range Abnormal Flag Note LastModifiedBy Organization Detail LastModifiedTime 01/01/20 22 01/01/2022 HEMOG LOBIN A1C hemoglobin A1C 5.2 % 4.8-5. 6 Predi abete s: 5.7 - 6.4 Diabe martha: >6.4 Glyce pamela contr ol for adult s with diabe martha: <7.0 Not Available [facility] ([facility]) [address] [place], [address], 01/04/2022 03:07:32 01/01/20 22 01/01/2022 RHEUM ATOID ARTHR ITIS PROFI LE rheumatoid factor (rf) <10.0 IU/mL <14.0 Not Available [facility] ([facility]) [address] [facility], [place], [address], 01/04/2022 03:07:32 01/01/20 01/04/2022 RHEUM ATOID ARTHR ITIS PROFI LE anti-ccp Ab, IgG/IgA 8 units 0-19 Negat sofy <20 Weak posit sofy 20 - 39 Moder ate posit sofy 40 - 59 Stron g posit sofy >59 Not Available [facility] ([facility]) [address] [place], [address], 01/04/2022 03:07:32 01/01/20 22 01/01/2022 VITAM IN B12 AND FOLAT E vitamin B12 716 pg/mL 232-12 45 Not Available [facility] ([facility]) [address] [place], [address], 01/04/2022 03:07:31 01/01/20 22 01/01/2022 VITAM IN B12 AND FOLAT E folate (folic acid), serum >20.0 NG/mL >3.0 A serum folat e eduardo ntrat ion of less than 3.1 ng/mL is consi dered to repre sent clini lenny defic iency . Not Available [facility] ([facility]) [address] [place], [address], 01/04/2022 03:07:31 01/01/20 22 01/01/2022 LIPID PANEL W/ CHOL/ HDL RATIO cholesterol, total 201 mg/dL 100-19 9 above high normal Not Available [facility] ([facility]) [address] [place], [address], 01/04/2022 03:07:31 01/01/20 22 01/01/2022 LIPID PANEL W/ CHOL/ HDL RATIO triglyceride s 78 mg/dL 0-149 Not Available [facility]) [address] [place], [address], 01/04/2022 03:07:31 01/01/20 22 01/01/2022 LIPID PANEL W/ CHOL/ HDL RATIO HDL cholesterol 62 mg/dL >39 Not Available [facility] ([facility]) [address] [place], [address], 01/04/2022 03:07:31 01/01/20 22 01/01/2022 LIPID PANEL W/ CHOL/ HDL RATIO VLDL cholesterol lenny 14 mg/dL 5-40 Not Available [facility] ([facility]) [address] [place], [address], 01/04/2022 03:07:31 01/01/20 22 01/01/2022 LIPID PANEL W/ CHOL/ HDL RATIO LDL chol calc ([facility]) 125 mg/dL 0-99 above high normal Not Available [facility] ([facility]) [address] [place], [address], 01/04/2022 03:07:31 01/01/20 22 01/01/2022 LIPID PANEL W/ CHOL/ HDL RATIO comment: director of ancillary services Not Available [facility] ([facility]) [address] [place], [address], 01/04/2022 03:07:31 01/01/20 22 01/01/2022 LIPID PANEL W/ CHOL/ HDL RATIO T. chol/HDL ratio 3.2 ratio 0.0-4. 4 T. Chol/ HDL Ratio Men Women 1/2 Avg.R isk 3.4 3.3 Avg.R isk 5.0 4.4 2X Avg.R isk 9.6 7.1 3X Avg.R isk 23.4 11.0 Not Available [facility] ([facility]) [address] [place], [address], 01/04/2022 03:07:31 01/01/20 22 12/31/2021 MARIO COMPR EHENS SOFY PANEL see below: commen t Autoa ntibo dy Disea se Assoc iatio n ----- ----- ----- ----- ----- ----- ----- ----- ----- ----- ----- ----- Condi tion Frequ ency ----- ----- ----- ----- - ----- ----- ----- ----- ---- ----- ---- Antin uclea r Antib kadi, SLE, mixed conne ctive Direc t (MARIO- D) tissu e disea ses ----- ----- ----- ----- - ----- ----- ----- ----- ---- ----- ---- dsDNA SLE 40 - 60% ----- ----- ----- ----- - ----- ----- ----- ----- ---- ----- ---- Chrom atin Drug induc ed SLE 90% SLE 48 - 97% ----- ----- ----- ----- - ----- ----- ----- ----- ---- ----- ---- SSA (Ro) SLE 25 - 35% Sjogr en's Syndr ome 40 - 70% Neona milvia Lupus 100% ----- ----- ----- ----- - ----- ----- ----- ----- ---- ----- ---- SSB (La) SLE 10% Sjogr en's Syndr ome 30% ----- ----- ----- ----- - ----- ----- ----- ----- --- ----- ---- Sm (anti -Jorge A h) SLE 15 - 30% ----- ----- ----- ----- - ----- ----- ----- ----- --- ----- ---- STERILISATION TECHNICIAN Mixed Conne ctive Tissu e Disea se 95% (U1 nRNP, SLE 30 - 50% anti- ribon ucleo prote in) Polym yosit is and/o r [place] tomyo sitis 20% ----- ----- ----- ----- - ----- ----- ----- ----- ---- ----- ---- Scl-7 0 (anti DNA Scler oderm a (diff use) 20 - 35% topoi alicia ase) Crest 13% ----- ----- ----- ----- - ----- ----- ----- ----- ---- ----- ---- Rose Mary-1 Polym yosit is and/o r [place] tomyo sitis 20 - 40% ----- ----- ----- ----- - ----- ----- ----- ----- ---- ----- ---- Centr omere B Scler oderm a - Crest varia nt 80% Not Available [facility] ([facility]) [address] [place], [address], 01/04/2022 03:07:31 01/01/20 22 01/01/2022 MARIO COMPR EHENS SOFY PANEL anti-DNA (ds) Ab qn <1 IU/mL 0-9 Negat sofy <5 Equiv ocal 5 - 9 Posit sofy >9 Not Available [facility] ([facility]) [address] [place], [address], 01/04/2022 03:07:31 01/01/20 22 01/01/2022 MARIO COMPR EHENS SOFY PANEL change booth attendant antibodies <0.2 ai 0.0-0. 9 Not Available [facility] ([facility]) [address] [facility], [place], [address], 01/04/2022 03:07:31 01/01/20 22 01/01/2022 MARIO COMPR EHENS SOFY PANEL farrell antibodies <0.2 ai 0.0-0. 9 Not Available [facility] ([facility]) [address] [place], [address], 01/04/2022 03:07:31 01/01/20 22 01/01/2022 MARIO COMPR EHENS SOFY PANEL antisclerode rma-70 antibodies <0.2 ai 0.0-0. 9 Not Available [facility] ([facility]) [address] [place], [address], 01/04/2022 03:07:31 01/01/20 22 01/01/2022 MARIO COMPR EHENS SOFY PANEL sjogren's anti-ss-A <0.2 ai 0.0-0. 9 Not Available [facility] ([facility]) [address] [place], [address], 01/04/2022 03:07:31 01/01/20 22 01/01/2022 MARIO COMPR EHENS SOFY PANEL sjogren's anti-ss-B <0.2 ai 0.0-0. 9 Not Available [facility] ([facility]) [address] [place], [address], 01/04/2022 03:07:31 01/01/20 22 01/01/2022 MARIO COMPR EHENS SOFY PANEL antichromati n antibodies <0.2 ai 0.0-0. 9 Not Available [facility] ([facility]) [address] [place], [address], 01/04/2022 03:07:31 01/01/20 22 01/01/2022 MARIO COMPR EHENS SOFY PANEL anti-rose mary-1 <0.2 ai 0.0-0. 9 Not Available [facility] ([facility]) [address] [place], [address], 01/04/2022 03:07:31 01/01/20 22 01/01/2022 MARIO COMPR EHENS SOFY PANEL anti-centrom ere B antibodies <0.2 ai 0.0-0. 9 Not Available [facility] ([facility]) [address] [place], [address], 01/04/2022 03:07:31 01/01/20 22 01/01/2022 CBC WITH DIFFE RENTI AL/PL ATELE T WBC 3.6 x10e3 /uL 3.4-10 .8 Not Available [facility] ([facility]) [address] [place], [address], 01/04/2022 03:07:30 01/01/20 22 01/01/2022 CBC WITH DIFFE RENTI AL/PL ATELE T RBC 4.11 x10e6 /uL 3.77-5 .28 Not Available [facility] ([facility]) [address] [place], [address], 01/04/2022 03:07:30 01/01/20 22 01/01/2022 CBC WITH DIFFE RENTI AL/PL ATELE T hemoglobin 12.9 g/dL 11.1-1 5.9 Not Available [facility] ([facility]) [address] [place], [address], 01/04/2022 03:07:30 01/01/20 22 01/01/2022 CBC WITH DIFFE RENTI AL/PL ATELE T hematocrit 39.3 % 34.0-4 6.6 Not Available [facility] ([facility]) [address] [place], [address], 01/04/2022 03:07:30 01/01/20 22 01/01/2022 CBC WITH DIFFE RENTI AL/PL ATELE T MCV 96 fL 79-97 Not Available [facility] ([facility]) [address] [place], [address], 01/04/2022 03:07:30 01/01/20 22 01/01/2022 CBC WITH DIFFE RENTI AL/PL ATELE T MCH 31.4 pg 26.6-3 3.0 Not Available [facility] ([facility]) [address] [place], [address], 01/04/2022 03:07:30 01/01/20 22 01/01/2022 CBC WITH DIFFE RENTI AL/PL ATELE T MCHC 32.8 g/dL 31.5-3 5.7 Not Available [facility] ([facility]) [address] [facility], [place], [address], 01/04/2022 03:07:30 01/01/20 22 01/01/2022 CBC WITH DIFFE RENTI AL/PL ATELE T RDW 12.1 % 11.7-1 5.4 Not Available [facility] ([facility]) [address] [facility], [place], [address], 01/04/2022 03:07:30 01/01/20 22 01/01/2022 CBC WITH DIFFE RENTI AL/PL ATELE T platelets 211 x10e3 /uL 150-45 0 Not Available [facility] ([facility]) [address] [facility], [place], [address], 01/04/2022 03:07:30 01/01/20 22 01/01/2022 CBC WITH DIFFE RENTI AL/PL ATELE T neutrophils 49 % not estab. Not Available [facility] ([facility]) [address] [facility], [place], [address], 01/04/2022 03:07:30 01/01/20 22 01/01/2022 CBC WITH DIFFE RENTI AL/PL ATELE T lymphs 38 % not estab. Not Available [facility] ([facility]) [address] [facility], [place], [address], 01/04/2022 03:07:30 01/01/20 22 01/01/2022 CBC WITH DIFFE RENTI AL/PL ATELE T monocytes 8 % not estab. Not Available [facility] ([facility]) [address] [place], [address], 01/04/2022 03:07:30 01/01/20 22 01/01/2022 CBC WITH DIFFE RENTI AL/PL ATELE T eos 4 % not estab. Not Available [facility] ([facility]) [address] [place], [address], 01/04/2022 03:07:30 01/01/20 22 01/01/2022 CBC WITH DIFFE RENTI AL/PL ATELE T basos 1 % not estab. Not Available [facility] ([facility]) [address] [facility], [place], [address], 01/04/2022 03:07:30 01/01/20 22 01/01/2022 CBC WITH DIFFE RENTI AL/PL ATELE T immature cells director of ancillary services Not Available [facility] ([facility]) [address] [place], [address], 01/04/2022 03:07:30 01/01/20 22 01/01/2022 CBC WITH DIFFE RENTI AL/PL ATELE T neutrophils (absolute) 1.8 x10e3 /uL 1.4-7. 0 Not Available [facility] ([facility]) [address] [place], [address], 01/04/2022 03:07:30 01/01/20 22 01/01/2022 CBC WITH DIFFE RENTI AL/PL ATELE T lymphs (absolute) 1.4 x10e3 /uL 0.7-3. 1 Not Available [facility] ([facility]) [address] [place], [address], 01/04/2022 03:07:30 01/01/20 22 01/01/2022 CBC WITH DIFFE RENTI AL/PL ATELE T monocytes(ab solute) 0.3 x10e3 /uL 0.1-0. 9 Not Available [facility] ([facility]) [address] [facility], [place], [address], 01/04/2022 03:07:30 01/01/20 22 01/01/2022 CBC WITH DIFFE RENTI AL/PL ATELE T eos (absolute) 0.2 x10e3 /uL 0.0-0. 4 Not Available [facility] ([facility]) [address] [facility], [place], [address], 01/04/2022 03:07:30 01/01/20 22 01/01/2022 CBC WITH DIFFE RENTI AL/PL ATELE T baso (absolute) 0.0 x10e3 /uL 0.0-0. 2 Not Available [facility] ([facility]) [address] [facility], [place], [address], 01/04/2022 03:07:30 01/01/20 22 01/01/2022 CBC WITH DIFFE RENTI AL/PL ATELE T immature granulocytes 0 % not estab. Not Available [facility] ([facility]) [address] [facility], [place], [address], 01/04/2022 03:07:30 01/01/20 22 01/01/2022 CBC WITH DIFFE RENTI AL/PL ATELE T immature grans (abs) 0.0 x10e3 /uL 0.0-0. 1 Not Available [facility] ([facility]) [address] [facility], [place], [address], 01/04/2022 03:07:30 01/01/20 22 01/01/2022 CBC WITH DIFFE RENTI AL/PL ATELE T NRBC director of ancillary services Not Available [facility] ([facility]) [address] [facility], [place], [address], 01/04/2022 03:07:30 01/01/20 22 01/01/2022 CBC WITH DIFFE RENTI AL/PL ATELE T hematology comments: director of ancillary services Not Available [facility] ([facility]) [address] [facility], [place], [address], 01/04/2022 03:07:30 01/01/20 22 01/01/2022 TSH+F REE T4 TSH 1.330 uIU/m L 0.450- 4.500 Not Available [facility] ([facility]) [address] [facility] [place], [address], 01/04/2022 03:07:30 01/01/20 22 01/01/2022 TSH+F REE T4 T4,free(dire ct) 1.18 NG/dL 0.82-1 .77 Not Available [facility] ([facility]) [address] [facility] [place], [address], 01/04/2022 03:07:30 01/01/20 22 01/01/2022 CMP14 +EGFR glucose 90 mg/dL 65-99 Not Available [facility] ([facility]) [address] [place], [address], 01/04/2022 03:07:29 01/01/20 22 01/01/2022 CMP14 +EGFR BUN 12 mg/dL 6-20 Not Available [facility] ([facility]) [address] [facility] [place], [address], 01/04/2022 03:07:29 01/01/20 22 01/01/2022 CMP14 +EGFR creatinine 0.75 mg/dL 0.57-1 .00 Not Available [facility] ([facility]) [address] [place], [address], 01/04/2022 03:07:29 01/01/20 22 01/01/2022 CMP14 +EGFR eGFR 107 mL/mi n/1.7 3 >59 Not Available [facility] ([facility]) [address] [place], [address], 01/04/2022 03:07:29 01/01/20 22 01/01/2022 CMP14 +EGFR BUN/creatini ne ratio 16 9-23 Not Available [facility] ([facility]) [address] [place], [address], 01/04/2022 03:07:29 01/01/20 22 01/01/2022 CMP14 +EGFR sodium 141 mmol/ L 134-14 4 Not Available [facility] ([facility]) [address] [place], [address], 01/04/2022 03:07:29 01/01/20 22 01/01/2022 CMP14 +EGFR potassium 4.3 mmol/ L 3.5-5. 2 Not Available [facility] ([facility]) [address] [facility], [place], [address], 01/04/2022 03:07:29 01/01/20 22 01/01/2022 CMP14 +EGFR chloride 103 mmol/ L 96-106 Not Available [facility] ([facility]) [address] [facility], [place], [address], 01/04/2022 03:07:29 01/01/20 22 01/01/2022 CMP14 +EGFR carbon dioxide, total 23 mmol/ L 20-29 Not Available [facility] ([facility]) [address] [place], [address], 01/04/2022 03:07:29 01/01/20 22 01/01/2022 CMP14 +EGFR calcium 9.1 mg/dL 8.7-10 .2 Not Available [facility] ([facility]) [address] [place], [address], 01/04/2022 03:07:29 01/01/20 22 01/01/2022 CMP14 +EGFR protein, total 6.7 g/dL 6.0-8. 5 Not Available [facility] ([facility]) [address] [place], [address], 01/04/2022 03:07:29 01/01/20 22 01/01/2022 CMP14 +EGFR albumin 4.6 g/dL 3.8-4. 8 Not Available [facility] ([facility]) [address] [place], [address], 01/04/2022 03:07:29 01/01/20 22 01/01/2022 CMP14 +EGFR globulin, total 2.1 g/dL 1.5-4. 5 Not Available [facility] ([facility]) [address] [place], [address], 01/04/2022 03:07:29 01/01/20 22 01/01/2022 CMP14 +EGFR A/G ratio 2.2 1.2-2. 2 Not Available [facility] ([facility]) [address] [place], [address], 01/04/2022 03:07:29 01/01/20 22 01/01/2022 CMP14 +EGFR bilirubin, total 0.6 mg/dL 0.0-1. 2 Not Available [facility] ([facility]) [address] [place], [address], 01/04/2022 03:07:29 01/01/20 22 01/01/2022 CMP14 +EGFR alkaline phosphatase 45 IU/L 44-121 Not Available [facility]) [address] [place], [address], 01/04/2022 03:07:29 01/01/20 22 01/01/2022 CMP14 +EGFR AST (SGOT) 15 IU/L 0-40 Not Available [facility] ([facility]) [address] [place], [address], 01/04/2022 03:07:29 01/01/20 22 01/01/2022 CMP14 +EGFR ALT (SGPT) 9 IU/L 0-32 Not Available [facility] ([facility]) [address], [place], [address], 01/04/2022 03:07:29 04/13/20 22 03/25/2022 home sleep study No observ ation record ed. [id number] [facility] [address], [place], [address], 10/12/2022 21:31:19 07/27/20 22 07/15/2022 XR, chest , 2 view No observ ation record ed. [id number] [facility] [address] [place], [address], 10/12/2022 21:31:19 08/22/19 23 07/15/2022 XR, chest , 2 view No observ ation record ed. [id number] [facility] [address] [place], [address], 10/12/2022 21:31:19 Result Notes None recorded. Problems Name Problem SNOMED Code Status Onset Date Resolution Date Notes Provider Name and Address Organization Details Recorded Time Acute sinusitis 63448093 Active 2021 Not Available [facility] 3 21:29:44 Insomnia 821522139 Active 2019 Not Available [facility] 3 21:29:44 Mixed anxiety and depressive disorder 242590276 Active 2019 Not Available [facility] 3 21:29:44 Eruption 666881001 Active 2021 Not Available [facility] 3 21:29:44 Pruritic disorder 769609511 Active 2021 Not Available [facility] 3 21:29:44 Sleep disorder 74938699 Active 2021 Not Available [facility] 3 21:29:44 Attention deficit hyperactivity disorder 496545804 Active 2021 Not Available [facility] 3 21:29:44 Dyssomnia 34837664 Active 07/12/ 2022 Not Available [facility] 3 21:29:45 Anxiety 35612812 Active 2021 Not Available [facility] 3 21:29:45 Cough 32176758 Active 2021 Not Available [facility] 3 21:29:45 Candidiasis of vagina 87583686 Active 2022 Not Available [facility] 3 21:29:45 Sleep apnea 78819898 Active 2021 Not Available [facility] 3 21:29:45 Generalized anxiety disorder 79651312 Active 2022 KARLA Seaman [address], [address], [place], [address] , [facility] 3 15:19:41 Major depressive disorder 902682946 Active 2022 KARLA Seaman [address], [address], [place], [address] , [facility] 3 15:19:46 Fatigue 18451681 Active 2022 KARLA Seaman [address], [address], [place], [address] , [facility] 3 15:20:40 Upper respiratory infection 90778187 Active 2022 KARLA Seaman [address], [address], [place], [address] , [facility] 3 13:40:44 Diarrhea 06805207 Active 2022 KARLA Semaan [address], [address], [place], [address] , [facility] 3 15:58:23 Problem Notes None recorded. Procedures Surgical History Date Name Laterality Status Provider Name and Address Organization Details Recorded Time removal of ectopic fetus completed Not Available [facility] 10/12/2022 21:28:48 Sinus Surgery completed Not Available [facility] 10/12/2022 21:28:48 Tonsillectomy completed Not Available [facility] 10/12/2022 21:28:48 laparoscopic ablation of pelvic endometriosis completed Not Available [facility] 10/12/2022 21:28:48 [facility] 21:28:48 Excisions - Specify completed Not Available [facility] 10/12/2022 21:28:48 Imaging Results None recorded. Procedure Notes None recorded. Medical Equipment None Reported. Allergies Allergen ID Allergen Name Allergen Category Reaction Reaction Severity Criticality Documentation Date Start Date Code Code System Note Provider Name and Address Organization Details Recorded Time 70213 cephalexi n medicatio n Not available Not available Not available 10/12/20222230 RxNorm Not Available [facility] 21:31:15 Medications Name Sig Start Date Stop Date Status Note LastModified by Organization Details LastModified Time doxycycline hyclate 100 mg capsule TAKE 1 CAPSULE BY MOUTH TWICE A DAY WITH FOOD active Not Available Not Available No t Available azithromyci n 250 mg tablet TAKE 2 TABLETS BY MOUTH TODAY, THEN TAKE 1 TABLET DAILY FOR 4 DAYS 05/12 completed Not Available Not Available Not Available fluconazole 150 mg tablet TAKE 1 TABLET EVERY DAY BY ORAL ROUTE X 3 DAYS active Not Available Not Available No t Available benzonatate 200 mg capsule Take 1 capsule 3 times a day by oral route. 06/02 completed Not Available Not Available Not Available hydrocodone 5 mg-acetamin ophen 325 mg tablet TAKE 1 TABLET BY MOUTH EVERY 6 HOURS NEEDED FOR PAIN 11/30 completed Not Available Not Available Not Available meloxicam 15 mg tablet TAKE 1 TABLET (15 MG TOTAL) BY MOUTH DAILY. 11/30 completed Not Available Not Available Not Available prednisone 20 mg tablet TAKE 2 TABLETS BY MOUTH DAILY IN THE MORNING FOR 7 DAYS active Not Available Not Available No t Available dextroamphe tamine-amph etamine 10 mg tablet TAKE 1 TABLET BY MOUTH TWICE A DAY PRN active Not Available Not Available No t Available sulfamethox azole 800 mg-trimetho prim 160 mg tablet Take 1 tablet every 12 hours by oral route. 02/09 completed Not Available Not Available Not Available omeprazole 40 mg capsule,del ayed release TAKE 1 CAPSULE BY MOUTH EVERY DAY IN THE MORNING (30-60 MINUTES BEFORE BREAKFAST ) 11/30 completed Not Available Not Available Not Available triamcinolo ne acetonide 0.1 % topical cream APPLY TO NONFACIAL RASH TWICE A DAY NEEDED active Not Available Not Available No t Available ketorolac 10 mg tablet Take 1 tablet every 6 hours by oral route as directed for 5 days. 07/23 completed Not Available Not Available Not Available Macrobid 100 mg capsule Take 1 capsule every 12 hours by oral route. active Not Available Not Available No t Available Guaiatussin AC 10 mg-100 mg/5 mL oral liquid TAKE 10 MILLILITE RS BY MOUTH EVERY 6 HOURS NEEDED 11/29 completed Not Available Not Available Not Available amoxicillin 875 mg tablet TAKE 1 TABLET BY MOUTH TWICE A DAY FOR 7 DAYS 11/29 completed Not Available Not Available Not Available citalopram 20 mg tablet TAKE 1 TABLET BY MOUTH EVERY DAY IN THE EVENING active Not Available Not Available No t Available famotidine 20 mg tablet TAKE 1 TABLET BY MOUTH TWICE A DAY 11/01 completed Not Available Not Available Not Available lorazepam 0.5 mg tablet TAKE 1 TABLET 3 TIMES A DAY BY ORAL ROUTE NEEDED. active Not Available Not Available No t Available trazodone 100 mg tablet take 1/2 tab to 1 tab po qhs PRN insomnia 09/26 completed Not Available Not Available Not Available trazodone 150 mg tablet TAKE 1 TABLET BY MOUTH EVERYDAY AT BEDTIME 02/22 completed PRN Not Available Not Available Not Available hydrocortis one 100 mg/60 mL enema TAKE RECTALLY ONCE DAILY AT BEDTIME. 07/16 completed Not Available Not Available Not Available bupropion HCl 75 mg tablet TAKE 2 TABLETS BY MOUTH TWICE DAILY 07/23 completed Not Available Not Available Not Available fluoxetine 10 mg capsule TAKE 1 CAPSULE BY MOUTH EVERY DAY 06/02 completed Not Available Not Available Not Available mupirocin 2 % topical ointment APPLY A SMALL AMOUNT TO THE AFFECTED AREA BY TOPICAL ROUTE 3 TIMES PER DAY PRN only active Not Available Not Available No t Available zolpidem 10 mg tablet TAKE 1 TABLET BY MOUTH PRIOR TO SLEEP STUDY 11/30 completed Not Available Not Available Not Available methylpredn isolone 4 mg tablets in a dose pack TAKE 6 TABLETS ON DAY 1 DIRECTED ON PACKAGE AND DECREASE BY 1 TAB EACH DAY FOR A TOTAL OF 6 DAYS active Not Available Not Available No t Available fluoxetine 20 mg capsule TAKE 1 CAPSULE BY MOUTH EVERY DAY active Not Available Not Available No t Available sertraline 50 mg tablet take 1/2 tab po daily x 7 days, then increase to 1 tab po daily after 01/08 completed Not Available Not Available Not Available doxycycline hyclate 100 mg tablet TAKE 1 TABLET BY MOUTH TWICE A DAY *MAY TAKE WITH FOOD TO MINIMIZE ABDOMINAL DISCOMFOR T 11/01 completed Not Available Not Available Not Available dextroamphe tamine-amph etamine 5 mg tablet Take 1 tablet twice a day by oral route. 02/08 completed Not Available Not Available Not Available amoxicillin 875 mg-potassiu m clavulanate 125 mg tablet TAKE 1 TABLET BY MOUTH TWICE A DAY FOR 10 DAYS 11/29 completed Not Available Not Available Not Available clindamycin phosphate 1 % topical solution APPLY TO AFFECTED AREA TO CHEST/ BACK/ABDO MEN TWICE A DAY 02/21 completed Not Available Not Available Not Available Flor 0.35 mg tablet 08/29 completed Not Available Not Available Not Available Flovent HFA 44 mcg/actuati on aerosol inhaler TAKE 2 PUFFS BY MOUTH TWICE A DAY 11/30 completed Not Available Not Available Not Available intrauterin e device (IUD) 2019 active Not Available Not Available Not Avai lable mometasone 0.1 % topical solution APPLY TO SCALP TWICE A DAY NEEDED active Not Available Not Available No t Available tranexamic acid 650 mg tablet 01/08 completed Not Available Not Available Not Available Suprep Bowel Prep Kit 17.5 gram-3.13 gram-1.6 gram oral solution active Not Available Not Available Not Available Lo Loestrin Fe 1 mg-10 mcg (24)/10 mcg (2) tablet 08/29 completed Not Available Not Available Not Available Chantix Starting Month Box 0.5 mg (11)-1 mg (42) tablets in dose pack use as directed 07/23 completed Not Available Not Available Not Available Fluzone Quad (PF) 60 mcg (15 mcg x 4)/0.5 mL IM syringe [facility] 07/23 completed Not Available Not Available Not Available Vitals Date Recorded Body mass index (BMI) Body height Oxygen saturation Oxygen saturation in Arterial blood by Pulse oximetry Heart rate Respiratory rate Body temperature Body weight Provider Name and Address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
[2025-01-24 13:07] VITALS: BP 103/71; PULSE 81; RESP 16; TEMP 36.9; O2SAT 99
--- OUTSIDE RECORDS SUMMARY | 2025-01-24 13:07 | XMS_ITS | Data Portability ---
Author Organization [place] - [employer], [employer] - [facility] Address [address] [place] [address] Care Team Providers Care Tandem Operator Name Role Phone VIRGIL AGUIRRE Referring Provider Assessment Encounter Date Assessment Date Assessment LastModified by Organization Details LastModified Time 12/18/2015 12/18/2015 Pt with fatigue bilateral 16/20 single leg heel raises with upper ext. support. Trialled Mconnell heel cup/low dye arch support on right foot. Continue to address hip stablity. Plan Not available 12/18/2015 16:47:36 12/30/2015 12/30/2015 Increased ed on importance of arch support (super feet) and increased bilateral hip strength. Severe bilateral calc. valgus and pronation during WBing. Continue to address ankle strength and mobility. Plan Continue with treatment plan progress exercise as tolerated Not available 12/30/2015 21:27:06 01/13/2016 01/13/2016 Pt tolerated tx well. Decreased sx's with arch supports. Continue to address foot mobility and strength, increasing bilateral hip abductor work. Plan Continue with treatment plan progress exercise as tolerated Not available 01/13/2016 15:50:20 01/15/2016 01/15/2016 Pt reports bilateral feet are feeling a little better. Notices when she doenst have supportive shoes on. Trying to do HEP daily. Notices hips getting stronger. Plan Continue with treatment plan progress exercise as tolerated Not available 01/15/2016 16:20:42 01/21/2016 01/21/2016 Pt tolerated tx well. Increased ed on importance of proper foot wear and support during hiking walking and running. Continued working on LE ankle tendons/mms and STW. Plan Continue with treatment plan progress exercise as tolerated Not available 01/21/2016 20:29:20 Plan of Treatment Reminders Order Date Submit Date Provider Last Modified By Organization Details Last Modified Time Details Appointments None record ed. Lab None record ed. Referral None record ed. Procedures None record ed. Surgeries None record ed. Imaging None record ed. Medication Orders None record ed. 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 Reason for Referral None Reported. Problems Name Problem SNOMED Code Status Onset Date Resolution Date Notes Provider Name and Address Organization Details Recorded Time Metatars[place] 07209513 [place] [address], [address], [employer] 20:29:20 Pain in lower [place] 80866611 [place] [address], [address], [place] [employer] 20:29:20 Problem Notes None recorded. Procedures Surgical History Date Name Laterality Status Provider Name and Address Organization Details Recorded Time 6 84240:*[place] Total Billable [place] [address], [address], [employer] 01/21/2016 20:29:22 6 85534: Manual Therapy (1:1) [place] [address], [address], [employer] 01/21/2016 20:29:22 6 97961: * Therapeutic Activities (1:1) [place] [address], [address], [place] [facility] 01/21/2016 20:29:22 6 33759:*[place] Billable [place] [address] [facility], [address] [place], [address], [place] [facility] [facility] 01/15/2016 16:20:44 6 11364: Manual Therapy (1:1) [place] [address] [facility], [address] [place], [address], [place] [facility] 01/15/2016 16:20:44 6 65903: *Therapeutic Exercise (1:1) [place] [address] [facility], [address], [address], [place] [facility] 01/15/2016 16:20:44 6 46465:*[place] Total Billable [place] [address] [facility], [address] [place], [address], [place] [facility] 01/13/2016 15:50:22 6 38653: Manual Therapy (1:1) [place] [address] [facility], [address] [place], [address], [place] [facility] 01/13/2016 15:50:22 6 08524: *Therapeutic Exercise (1:1) [place] [address] [facility], [address] [place], [address], [place] [facility] 01/13/2016 15:50:22 6 99477:*[place] Total Billable Treatment [place] [address] [facility], [address] [place], [address], [place] [facility] 12/30/2015 21:27:06 6 09257: Manual Therapy (1:1) [place] [address] [facility], [address], [place], [address], [place] [facility] 12/30/2015 21:27:06 6 24486: *Therapeutic Exercise (1:1) [place] [address] [facility], [address], [place], [address], [place] [facility] 12/30/2015 21:27:06 6 57326:*[place] Total Billable Treatment [place] [address] [facility], [address], [place], [address], [place] [facility] 12/18/2015 16:47:37 6 14187: Manual Therapy (1:1) [place] [address] [facility], [address], [place], [address], [place] [facility] 12/18/2015 16:47:37 6 79712: *Neuromuscular Re-Education (1:1) [place] [address] [facility], [address], [place], [address], [place] [facility] 12/18/2015 16:47:37 6 78323: *Therapeutic Exercise (1:1) [place] [address] [facility], [address], [place], [address], [place] [facility] 12/18/2015 16:47:37 6 94945: [place] [address] [facility], [address], [place], [address], [place] [facility] 12/16/2015 22:51:57 6 70157: * Therapeutic Exercise (1:1) [place] [address] [facility], [address], [place], [address], [place] [facility] 12/16/2015 23:06:05 6 59132:*[place] Total Billable Treatment [place] [address] [facility], [address], [address], [place] [facility] 12/16/2015 22:51:57 6 14616: * Therapeutic Activities (1:1) [place] [address] [facility], [address], [address], [place] [facility] 12/16/2015 23:06:05 Imaging Results None recorded. Procedure Notes None recorded. Medical Equipment None Reported. Vitals None Recorded Social History Question Answer Notes LastModified by [email or web address] Details LastModified Time What Is Your Level Of Caffeine Consumption? Heavy Information not available 12/17/2015 Live Alone Or With Others? With Others Information not available 12/17/2015 Living Setting Elevator Information not available 12/17/2015 Are You Currently Receiving Or Seeking Disability For This Condition? No Information not available 12/17/2015 Do You Exercise Outside Of Normal Daily Activities? 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 Good Information not available 12/17/2015 Previous Functional Level Independent In All Activities (work-communit a-[id number]-[id number] ion) Information not available 12/17/2015 How Much Tobacco Do You Smoke? 1 PPW Occasionally Information not available 12/17/2015 General Stress Level High Information not available 12/17/2015 Sex: Unknown Functional Status Question Answer Note LastModified by Organizat ion Details LastModified Time What is your level of alcohol consumption? Occasional Information not available 12/17/2015 Mental Status None recorded. Family History Nothing Reported. Medical History Condition Response Diabetes N Heart Problems N High Blood Pressure N Arthritis N Parkinson's Disease N Patient denies any relevant medical hist ory N Circulation/Vascular Problems N Kidney Problems N Cancer N Stroke N Depression Y Stomach Problems N Pacemaker N Lung/Breathing Problems N Multiple Sclerosis N Neurologic Disorder N Headaches/Migraines Y Osteoporosis N Gynecological HistoryNo gynecological history recorded. Obstetrics History GPAL:G 0 P 0 0 0 0 Past Encounters Encounter ID Performer Location Encounter Start Date Encounter Closed Date Diagnosis/Indication Diagnosis SNOMED-CT Code Diagnosis ICD10 Code Diagnosis Note [id number] Cat Leahy PT [facility] [address] [address] 12/16/2015 12:39:01 12/16/2015 21:48:56 Metatarsalgia 53429735 M77.40 Pain in lower limb 41125 006 M79.609 [id number] Cat Leahy PT [facility] [address] [address] 12/18/2015 15:20:58 12/18/2015 17:09:42 Metatarsalgia 22099582 M77.40 Pain in lower limb 79456 006 M79.609 [id number] Cat Leahy PT [facility] [address] [address] 12/30/2015 11:42:01 12/30/2015 13:14:09 Pain in lower limb 56497758 M79.609 Metatarsalgia 52456010 M 77.40 [id number] Cat Leahy PT [facility] [address] [address] 01/13/2016 14:25:35 01/13/2016 16:16:21 Pain in lower limb 28328635 M79.609 Metatarsalgia 68515080 M 77.40 [id number] Cat Leahy PT [facility] [address] [address] 01/15/2016 14:27:41 01/15/2016 18:22:33 Pain in lower limb 76340477 M79.609 Metatarsalgia 91153970 M 77.40 [id number] Cat Leahy PT [facility] [address] [address] 01/21/2016 15:16:06 01/21/2016 20:53:14 Pain in lower limb 43561552 M79.609 Metatarsalgia 76082601 M 77.40 Health Concerns Section Related Observation LastModified by Organization Detai ls LastModified Time None Recorded Concern Status LastModified by Organization Details LastModified Time None Recorded Advance Directives Directive None Recorded Payers Insurance Date Sequence Insurance Name Policy Number Policy Fraser Covered Member ID Fraser Member ID Guarantor Name 01/21/2016 1 [facility] (POS) [id number] Eron Villafana [id number] Martine Villafana Notes Date Note Type Note Provider Name and Address Organization Details Recorded Time 12/18/2015 text/html HPI DailyReporte d bypatient.Notes:Pt reports she didnt have a chance to do HEP. Did not do anything to bring on sx's so not sure if they have changed[place] [address] [facility], [address], [address] [place] [address], [place] [employer] 12/18/2015 16:48:15 12/30/2015 text/html HPI DailyReporte d bypatient.Notes:Pt reports that she has not been doing HEP. Found some sandals with more of an arch support but have been hurting bottom of [place] feet [place] [address] [facility], [address], [address] [place] [address], [place] [employer] 12/30/2015 21:27:25 01/13/2016 text/html HPI DailyReporte d bypatient.Notes:Pt reports she has been very busy traveling, moving up to [place] for the summer. Bought inserts and feet feel much better. Trying to be better about HEP. Five mile hike [place] [address] [facility], [address], [address] [place] [address], [place] [employer] 01/13/2016 15:52:56 01/15/2016 text/html HPI DailyReporte d bypatient.Notes:Pt reports feet are feeling more supported. Got velma sandals that help a lot[place] [address] [facility], [address], [address], [place] [employer] 01/15/2016 16:21:24 01/21/2016 text/html HPI DailyReporte d bypatient.Notes:Lorenza t for hike, new hiking shoes and inserts. Bilateral toes numb after 4.5 miles, went 9 [place] [address] [address] [facility], [place] [address], [place], [address], [place] [facility] 01/21/2016 20:29:56 OBGyn Episode No OBEpisode recorded.
--- OUTSIDE RECORDS SUMMARY | 2025-01-24 13:07 | XMS_ITS | Data Portability ---
Author Organization [facility] S CUONG [facility] Address [address] [place] [address] [address] [place] [address] Assessment No assessment recorded. Plan of Treatment Reminders Order Date Submit Date Provider Last Modified By Organization Details Last Modified Time Details Appointments None recorded. Lab None recorded. Referral None recorded. Procedures None recorded. Surgeries None recorded. Imaging None recorded. Medication Orders clindamyci n HCl 300 mg capsule 2017 018 INTERFACE [facility] #[id number], [address] [place], [place], [phone], 8 13:30:12 Medrol (Severino) 4 mg tablets in a dose pack 2017 018 [facility] #[id number], [address] [place], [place], [phone], 8 13:30:12 Patient TargetsNo targets recorded. Patient InstructionsNo instructions recorded. Reason for Referral None Reported. Procedures Surgical History Date Name Laterality Status Provider Name and Address Organization Details Recorded Time 03/27/20 18 Allergy Shot UAS completed [facility]. 03/27/2018 10:13:50 12/22/19 18 Allergy Shot UAS completed [facility]. 12/21/2017 14:34:58 10/06/19 18 Allergy Shot UAS completed [facility]. 10/06/2017 09:20:03 08/17/19 18 Allergy Shot UAS completed [facility]. 08/17/2017 13:47:27 08/10/20 17 [facility] 08/10[facility]2017 13:30:01 08/01/20 17 Allergy Test completed [facility]. 08/01/2017 11:48:20 07/31/[address] Sinus Read completed [facility]. 07/31/2017 21:12:51 07/26/20 17 Nasal Endoscopy 91005 completed [facility]. 07/26/2017 14:52:10 07/26/20 17 Laryngoscopy Fiberoptic 89348 completed [facility]. 07/26/2017 14:49:24 08/14/19 16 Sinus Surgery completed Karyn Sánchez [facility]. 07/26/2017 13:59:51 08/14/19 16 Nsl/sins ndsc frnt tiss rmvl completed Karyn Sánchez [facility]. 07/26/2017 14:00:40 Imaging Results None recorded. Procedure Notes None recorded. Medical Equipment None Reported. Allergies Allergen ID Allergen Name Allergen Category Reaction Reaction Severity Criticality Documentation Date Start Date Code Code System Note Provider Name and Address Organization Details Recorded Time 275441 cephalexi n medicatio n hives Not available Not available 07/26/2017 2231 RxNorm Karyn Sánchez [facility]. 13:53:03 Medications Name Sig Start Date Stop Date Status Note LastModified by Organization Details LastModified Time Levbid 0.375 mg tablet,exten ded release active Not Available Not Available Not Available Benadryl Allergy 12.5 mg/5 mL oral liquid Take 5 mL as needed by oral route. 2016 active Not Available Not Available Not Avai lable clindamycin HCl 300 mg capsule Take 1 capsule every 8 hours by oral route for 10 days. active Not Available Not Available No t Available trazodone 50 mg tablet active Not Available Not Available No t Available fluconazole 150 mg tablet active Not Available Not Available Not Available dextroamphet amine-amphet amine 10 mg tablet active Not Available Not Available Not Available sertraline 100 mg tablet active Not Available Not Available Not Available ciprofloxaci n 500 mg tablet Take 1 tablet every 12 hours by oral route. active Not Available Not Available Not Available buspirone 10 mg tablet active Not Available Not Available No t Available montelukast 10 mg tablet Take 1 tablet every day by oral route for 30 days. active Not Available Not Available No t Available azelastine 137 mcg (0.1 %) nasal spray [place] 2 sprays twice a day by intranasal route. 2017 active Not Available Not Available Not Avai lable methylpredni solone 4 mg tablets in a dose pack Take 1 dose pk by oral route as directed. active Not Available Not Available No t Available sertraline 50 mg tablet active Not Available Not Available Not Available doxycycline hyclate 100 mg tablet active Not Available Not Available No t Available dicyclomine 10 mg capsule active Not Available Not Available Not Available clindamycin phosphate 1 % topical solution active Not Available Not Available Not Available Zoloft 150mg qd active Not Available Not Avai lable Not Available Zyrtec active Not Available Not Availa ble Not Available Lo Loestrin Fe 1 mg-10 mcg (24)/10 mcg (2) tablet active Not Available Not Available Not Available Auvi-Q 0.3 mg/0.3 mL injection, auto-injecto r Take 2 autos as needed by injection route. 2016 active Not Available Not Available Not Avai lable Flonase Allergy Relief active Not Available Not Available Not Available Vitals Date Recorded Body height Heart rate Systolic blood pressure Diastolic blood pressure Provider Name and Address Organization Details Last Updated DateTime 10/06/2017 170.18 cm 72 /min 145 mm[Hg] 80 mm[Hg] RAJAN AVILEZ [facility]. 10/06/2017 09:18:26 Date Recorded Body height Body mass index (BMI) Body weight Heart rate Systolic blood pressure Diastolic blood pressure Provider Name and Address Organization Details Last Updated DateTime 8 170.18 cm 22.7 kg/m2 05783.8 9 g 91 /min 140 mm[Hg] 83 mm[Hg] Sinai Bullard [facility]. 8 13:03:28 Date Recorded Body height Body mass index (BMI) Body weight Heart rate Systolic blood pressure Diastolic blood pressure Provider Name and Address Organization Details Last Updated DateTime 8 170.18 cm 22.7 kg/m2 27615.8 9 g 104 /min 119 mm[Hg] 74 mm[Hg] Sinai Bullard [facility]. 8 12:59:05 Date Recorded Body height Heart rate Systolic blood pressure Diastolic blood pressure Provider Name and Address Organization Details Last Updated DateTime 12/21/2017 170.18 cm 88 /min 117 mm[Hg] 82 mm[Hg] [facility] 12/21/2017 14:33:04 Date Recorded Body height Heart rate Systolic blood pressure Diastolic blood pressure Provider Name and Address Organization Details Last Updated DateTime 03/27/2018 170.18 cm 74 /min 105 mm[Hg] 76 mm[Hg] [facility]. 03/27/2018 10:12:11 Social History Question Answer Notes LastModified by [employer] Details LastModified Time Tobacco Smoking Status Current Some Day Smoker Karyn jose [facility]. 07/26/2017 14:09:27 What Is Your Level Of Caffeine Consumption? Heavy [email or web address] Information not available 07/26/2017 How Much Tobacco Do You Chew? None [email or web address] Information not available 07/26/2017 What Was The Date Of Your Most Recent Tobacco Screening? 12/21/2017 Information not available 03/06/2019 Are You Passively Exposed To Smoke? No Information not available 08/02/2017 Are There Any Smokers In Your House? No Information not available 08/02/2017 How Many Years Have You Smoked Tobacco? 5 Information not available 08/02/2017 Sex: Unknown Functional Status Question Answer Note LastModified by [employer] Details LastModified Time What is your level of alcohol consumption? Occasional [email or web address] Information not available 07/26/2017 Mental Status None recorded. Family History Relationship Description Onset Age of this Age Resolved Age Notes LastModified by Organization Details LastModified Time Mother Diabetes mellitus [email or web address] Not available 2016 13:54:38 Mother Family history of malignant neoplasm [email or web address] Not available 2016 13:55:14 Maternal Grandfather Diabetes mellitus Not available 2016 13:54:48 Maternal Grandfather Family history of malignant neoplasm [email or web address] Not available 2016 13:55:21 Maternal Grandmother Family history of malignant neoplasm [email or web address] Not available 2016 13:55:25 Medical History Condition Response Coronary Artery Disease N Gout N Blood Diseases N Tonsil Infections Y Emphysema N Hives N Hospital Admission Other Than N Wheezing N Depression Y COPD N Glaucoma N Defects or Inherited Disease N Developmental or Behavioral Disorders Y Pneumonia N Nasal or Sinus Problems Y Pacemaker N Difficulty Swallowing Y High Blood Pressure/Hypertension N Anesthesia Complications N Anxiety Disorder N Muscle, Joint, or Bone Problems N Obesity N Vision or Eye Problems N Hearing Loss N Arthritis N Head Injury/Concussion N Blood Clot N Congenital Anomalies N Dysphagia N Acid Reflux (GERD) Y Cancer N Melanoma N Stroke N Snoring N Hoarseness N Bladder or Kidney Problems N Shortness of Breath N High Cholesterol N Skin Cancer N Headaches Y Fibromyalgia N Speech Delay N Kidney Disease N Allergies/Hayfever N Pituitary Disorder N Squamous Cell Carcinoma N Heart Conditions N Migraines Y Thyroid Problems N Developmental Delay N ADD/ADHD N Skin Problems N Anemia N Immune System Disorder N Constipation N Heart Attack (TN) N Other Skin Condition N Mental Illness N Diabetes N Bedwetting N Bleeding Disorder N Food Allergy N Seizures/Epilepsy N Epistaxis N Tuberculosis N AIDS/HIV N Eczema N Tinnitus N Asthma Y Nasal polyps N Basal Cell Carcinoma N Vertigo N Sleep Disorder N Hepatitis N Heart Disease N Bronchitis Y Pulmonary Embolism N PCOS N Chronic Ear Infections Y Chicken Pox N Autism Spectrum Disorder (ASD) N Gynecological HistoryNo gynecological history recorded. Obstetrics History GPAL:G 0 P 0 0 0 0 Past Encounters Encounter ID Performer Location Encounter Start Date Encounter Closed Date Diagnosis/Indication Diagnosis SNOMED-CT Code Diagnosis ICD10 Code Diagnosis Note [id number] MD VANESSA Kim [address] [place] [address] 07/26/2017 13:01:46 07/26/2017 15:12:04 Chronic ethmoidal sinusitis 96294281 J32.2 Allergic rhinitis 785092 04 J30.9 Nasal obstruction 822427 000 J34.89 Headache 72654641 R51 Hoarse 28773316 R49.0 [id number] MD VANESSA Kim [address] [place] [address] 07/31/2017 11:55:38 08/01/2017 11:57:17 Sinusitis 57572839 J32.2 [id number] MD VANESSA Solo [address] [place] [address] 08/01/2017 09:39:12 08/08/2017 07:51:38 Allergic rhinitis 85675081 J30.9 [id number] MD VANESSA Kim [address] [place] [address] 08/02/2017 14:06:53 08/02/2017 15:10:23 Allergic rhinitis 38289960 J30.9 [id number] MD VANESSA Solo [facility] [address] [place] [address] 08/08/2017 11:02:02 08/08/2017 16:07:54 Allergic rhinitis 87557095 J30.9 Allergic r hinitis caused by pollen 47648270 J30.1 Allergic r hinitis caused by animal hair and dander 4901005539 94202 J30.81 Allergic r hinitis caused by mold 7468176864 4015064 J30.89 [id number] MD VANESSA Kim [address] [facility] [address] [place] [address] 08/10/2017 12:42:35 08/10/2017 15:21:32 Allergic rhinitis caused by mold 9436303610 5349022 J30.89 Allergic r hinitis caused by animal hair and dander 7852669495 50466 J30.81 Allergic r hinitis caused by pollen 55599713 J30.1 [id number] MD VANESSA Kim [address] [facility] [place] [address] 08/17/2017 13:30:03 08/17/2017 17:22:01 Allergic rhinitis caused by animal hair and dander 4836454943 48081 J30.81 Allergic r hinitis caused by mold 2640916347 4835886 J30.89 Allergic r hinitis caused by pollen 78001534 J30.1 [id number] MD VANESSA Jacobs [address] [facility] [address] [place] [address] 10/06/2017 08:57:40 10/07/2017 08:15:39 Allergic rhinitis caused by animal hair and dander 6386559235 12064 J30.81 Allergic r hinitis caused by mold 9547966839 6990466 J30.89 Allergic r hinitis caused by pollen 10760991 J30.1 [id number] MD VANESSA Kim [place] [address] [address] 12/07/2017 12:46:59 12/07/2017 13:44:22 Allergic rhinitis caused by pollen 89514766 J30.1 DC IT until finished with medication Uvulitis 084564876 K12.2 Clindamyci n for 10 days Medrol Dose Pack [id number] MD VANESSA Kim [place] [address] [address] [facility] [address] [place] [address] 12/21/2017 12:53:36 12/27/2017 10:44:31 Allergic rhinitis caused by pollen 26825004 J30.1 Ok to proceed with IT Uvulitis 304396101 K12.2 Resolved [id number] MD VANESSA Kim [place] [address] [address] 12/21/2017 12:54:20 12/26/2017 17:01:23 Allergic rhinitis caused by mold 3525244927 2083430 J30.89 Allergic r hinitis caused by animal hair and dander 7716966366 84351 J30.81 Allergic r hinitis caused by pollen 85378771 J30.1 Ok to proceed with IT [id number] MD VANESSA Jacobs [place] [address] [address] 03/27/2018 09:15:51 03/27/2018 11:16:00 Allergic rhinitis caused by animal hair and dander 9861144652 04096 J30.81 Allergic r hinitis caused by mold 1460817762 2807196 J30.89 Allergic r hinitis caused by pollen 31369937 J30.1 Health Concerns Section Related Observation LastModified by Organization Detai ls LastModified Time None Recorded Concern Status LastModified by Organization Details LastModified Time None Recorded Advance Directives Directive None Recorded Payers Insurance Date Sequence Insurance Name Policy Number Policy Fraser Covered Member ID Fraser Member ID Guarantor Name 04/04/2018 1 [facility] [id number] Eron Darin Broderick [id number] Martine Villafana Notes Date Note Type Note Provider Name and Address Organization Details Recorded Time 12/07/2017 text/html Throat PainReported bypatient.Quality: aching; sore Severity:moderate Duration:started 1 week(s) ago Associated Symptoms:ear pain;nasal congestionNotes:Raiza gonzalez has had confirmed strep at least 4 times since January 29. She informs that she has had her tonsils/adenoids removed as a child due to chronic ear infections. This helped her ears. She believes that she has sinus issues. Sinus issues began to worsen in 2014. She had 6-12 sinus infections which culminated in sinus surgery. She states that he botched the surgery, therefore she had second opinion/revision surgery in [place]. Her sinuses have been fine since. Strep throat is now her main issue. She is currently undergoing IT, which she says is making her allergies worse. She is taking Montelukast and Azalaztine, with Saline Rushford daily. ANGELA Gupta - [facility]. 12/07/2017 16:14:11 12/21/2017 text/html Sinusitis/Allerg yR eported bypatient.Quality: congested;colored phlegm;productive cough; yellow phlegm Alleviating factors:nothing gives relief Associated Symptoms:cough;hea dache;facial pain;sinus pain;sore throatNotes:Sore throat has improved. Still with nasal congestion and headaches. ANGELA Durant - [facility]. 12/21/2017 13:10:28 OBGyn Episode No OBEpisode recorded.
--- OUTSIDE RECORDS SUMMARY | 2025-01-24 13:07 | XMS_ITS | Clinical Summary ---
Author Organization [facility] Address [address] [place] [address] Care Team Providers Care Instructional Consultant Name Role Phone Unavailable Primary Care Provider Unavailabl e Allergies No known active allergies Medications dextroamphetamine- amphetamine (ADDERALL) 20 mg tablet Take 20 mg by mouth 1 time daily as needed . Active ALPRAZOLAM (XANAX ORAL) Take by mouth. Active norethindrn a-e estradiol-iron (MICROGESTIN FE ,) 1 mg-20 mcg (21)/75 mg (7) tabletIndications: Encounter for initial prescription of contraceptive pills Take 1 Tablet by mouth daily. 28 Tablet 12 5 Active Active Problems Problem Noted Date Diagnosed Date Dysmenorrhea 04/08/2015 Dyspareunia 04/08/2015 Menorrhagia 04/08/2015 Pelvic pain in female 04/08/2015 Procreative management 04/08/2015 Endometriosis 04/08/2015 Family History Medical History Relation Name Comments Cancer Maternal Grandfather skin Cancer Maternal Grandmother skin Cancer Maternal Uncle 1 #1 lung and in his jaw Cancer Maternal Uncle 2 #2 unsure what kind Breast Cancer Mother Cancer Mother sinus and skin Diabetes Mother Other Mother lupus Relation Name Status Comments Father Alive Maternal Grandfather Maternal Grandmother Maternal Uncle 1 #1 Alive Maternal Uncle 2 #2 Alive Mother Alive Social History Tobacco Use Types Packs/Day Years Used Date Smoking Tobacco: Never Alcohol Use Standard Drinks/Week Comments Yes 0 (1 standard drink = 0.6 oz pur e alcohol) social Comments No Sex and Gender Information Value Date Recorded Sex Assigned at Not on file Legal Sex Female 11:20 AM CDT Gender Identity Not on file Sexual Orientation Not on file Last Filed Vital Signs Vital Sign Reading Time Taken Comments Blood Pressure 130/82 06/26/2015 2:09 PM [employer] Pulse 78 04/15/2015 11:00 AM CDT Temperature 36.6 C (97.9 F) 04/15/2015 11:00 AM CDT Respiratory Rate - - Oxygen Saturation - - Inhaled Oxygen Concentration - - Weight 65.8 kg (145 lb) 06/26/2015 2:09 PM [employer] Height 170.2 cm (5' 7) 06/26/2015 2:09 PM [employer] Body Mass Index 22.71 06/26/2015 2:09 PM [employer] Plan of Treatment Health Maintenance Due Date Last Done Comments DTAP/TDAP/TD VACCINES (1 - Tdap) 2006 HEPATITIS B VACCINES (1 of 3 - 19+ 3-dose series) 2006 HPV/Cotest (21-29) 2008 CERVICAL CANCER SCREENING 2017 HPV/Cotest (30-65) 2017 PAP SMEAR 2017 INFLUENZA VACCINE (#1) 2024 HPV VACCINES Aged Out No longer eligi ble based on patient's age to complete this topic Insurance
[2025-01-24 13:23] LABS: EDSTREPNEGPOS1 Negative (Negative)
--- NOTE | 2025-01-24 13:34 | ED_ITS ---
HPI - URI/Sore Throat General Chief Complaint: Upper Respiratory Infection Stated Complaint: Sore Throat Time Seen by Provider: 01/24/25 13:27 Source: patient and RN notes reviewed Mode of arrival: ambulatory Limitations: no limitations History of Present Illness HPI Narrative: Patient presents today complaining of nasal congestion and sore throat that started this morning. Two children and all have strep throat at home and have been started on antibiotics. Patient leaves tonight on vacation and wanted to be tested. She has taken DayQuil today without much relief. Related Data Home Medications ?Medication ?Instructions ?Recorded ?Confirmed ?Last Taken ?Type lorazepam 0.5 mg tablet 0.5 mg PO PRN PRN Anxiety 05/05/22 01/19/24 Unknown History dextroamphetamine-amphetamine 5 mg 5 mg PO BID PRN Anxiety 12/12/23 01/19/24 Unknown History tablet (Adderall) semaglutide 1 mg/dose (4 mg/3 mL) 1 mg subcut WEEKLY 01/19/24 01/19/24 Unknown History subcutaneous pen injector (Ozempic) fluoxetine 40 mg capsule mg 01/24/25 Unknown History Allergies Allergy/AdvReac Type Severity Reaction Status Date / Time cephalexin Allergy Intermediate Hives Verified 01/24/25 13:16 Review of Systems Review of Systems: CONSTITUTIONAL: Denies body aches, fever, chills, or sweats. EYES: Denies visual changes, redness, or discharge. ENT: Denies rhinorrhea, or otalgia.+ sore throat, congestion CARDIOVASCULAR: Denies chest pain, palpitations, or edema. RESPIRATORY: Denies cough or dyspnea. GASTROINTESTINAL: Denies abdominal pain, nausea, vomiting, or diarrhea. GENITOURINARY: Denies dysuria or hematuria. SKIN: Denies rash, itching, or wounds. MUSCULOSKELETAL: Denies back pain, joint pain, or myalgia. NEUROLOGIC: Denies headache, numbness, tingling, or weakness. PSYCH: Denies depression or anxiety. [facility] Past Medical History Medical History GERD (gastroesophageal reflux disease) Hemorrhoid ADHD Anxiety and depression Social History Social History Smoking status: Never smoker Alcohol intake: current Drinks per week: 2 Substance use: never Substance use type: does not use Living arrangements: other Additional living arrangements comments: with sp Spiritual care concerns: No Comments At time of signature, I have reviewed and agree with nursing past medical, surgical, social and family history unless otherwise noted. Please see nursing chart for further information. There is no relevant family history pertinent to the presenting complaint Exam Narrative: GENERAL: Well-appearing, well-nourished, and in no acute distress. HEAD: Normocephalic, atraumatic. EYES: EOMI. No redness or drainage. Conjunctivae normal. ENT: Mucous membranes pink and moist. Nares congested. No rhinorrhea. TMs normal bilaterally. Throat mildly erythematous without edema or exudate. Uvula midline. NECK: Normal AROM. Supple. No lymphadenopathy. CHEST: No respiratory distress. Clear to auscultation. HEART: Regular rate and rhythm. No murmur appreciated. EXTREMITIES: Normal range of motion. No edema. SKIN: Warm, dry, no rash. Capillary refill normal. Normal skin turgor. NEURO: No focal deficits. Alert and oriented x3. Gait steady. PSYCH: Normal affect. No signs of depression or anxiety. Course Course Level of Care: Express Care Visit Vital Signs Vital signs: Vital Signs Temperature 98.5 F 01/24/25 13:07 Pulse Rate 81 01/24/25 13:07 Respiratory Rate 16 01/24/25 13:07 Blood Pressure 103/71 01/24/25 13:07 Pulse Oximetry 99 01/24/25 13:07 Oxygen Delivery Room Air 01/24/25 13:07 Temperature 98.5 F 01/24/25 13:07 Pulse Rate 81 01/24/25 13:07 Respiratory Rate 16 01/24/25 13:07 Blood Pressure 103/71 01/24/25 13:07 Pulse Oximetry 99 01/24/25 13:07 Oxygen Delivery Room Air 01/24/25 13:07 Reviewed MDM - URI/Sore Throat MDM Narrative Medical decision making narrative: Rapid strep negative. Culture pending. Patient will be prescribed a course of amoxicillin that she will hold until culture results are back and will start if it is positive. Patient agrees with plan. Anticipatory guidance given. Differential Diagnosis Differential diagnosis: Likely upper respiratory infection, otitis media, viral infection, pharyngitis and other (Strep throat) Lab Data Attestation: I reviewed the patient's lab results. Labs: Lab Results 01/24/25 Range/Units 13:21 POC Grp A Strep Screen Negative (Negative) Critical Care Time Critical Care Time Critical Care Time: No Discharge Plan Discharge Clinical Impression: Strep throat exposure Pharyngitis Qualifiers: Pharyngitis/tonsillitis etiology: unspecified etiology Qualified Code(s): J02.9 - Acute pharyngitis, unspecified Patient Disposition: Home Condition: Stable Instructions: Antibiotic Form, Pharyngitis (ED) Additional Instructions: Your rapid strep screen is negative today. You will be notified in a few days of your strep culture results. A prescription for amoxicillin has been sent to your pharmacy for you to fill before your vacation. Please hold until your culture results come back and started if it is positive. In the meantime, take Tylenol or ibuprofen at home for pain. If you develop any shortness of breath or difficulty swallowing, please go to the nearest emergency department for further evaluation. Patient Language: Indonesian Prescriptions: New amoxicillin 875 mg tablet 875 mg PO Q12H 10 Days Qty: 20 0RF No Action fluoxetine 40 mg capsule dextroamphetamine-amphetamine [Adderall] 5 mg tablet 5 mg PO BID PRN (Reason: Anxiety) Rx Instructions: administer doses at least 4-6 hours apart lorazepam 0.5 mg tablet 0.5 mg PO PRN PRN (Reason: Anxiety) Ozempic 1 mg/dose (4 mg/3 mL) Pen Injector 1 mg SUBCUT WEEKLY Follow-up/Referrals: Lorenzo,ASHLEY Guthrie [Primary Care Provider] - Time of Disposition: 13:38
== END 2025-01-24 13:44 | disposition home or self-care (01) ==
PROVIDERS: Emergency Provider Nurse Practitioner; PCP Physician Assistant
DX: J02.9 Acute pharyngitis, unspecified (principal); Z20.818 Contact with and (suspected) exposure to other bacterial communicable diseases; K21.9 Gastro-esophageal reflux disease without esophagitis; F90.9 Attention-deficit hyperactivity disorder, unspecified type; F41.9 Anxiety disorder, unspecified
CPT/HCPCS: 87081; 87880; 99213; G0463

== ENCOUNTER 2025-04-13 09:03 | Emergency (ER) | payer OTHER, SELFPAY ==
--- OUTSIDE RECORDS SUMMARY | 2019-11-18 08:00 | XMS_ITS | Continuity of Care Document ---
[facility] Organization [facility] Address [address] [place] [address] [address] [place] [address] Phone Care Team Providers Care Research Coordinator Name Role Phone Bruce PT,MPT,ATC, Valente Unavailable Unavai lable Procedures Procedure Date Therapeutic Activities Therapeutic Activities Neuromuscular Re-Ed Therapeutic Activities Neuromuscular Re-Ed Progress Note Therapeutic Activities Neuromuscular Re-Ed Therapeutic Activities Neuromuscular Re-Ed Therapeutic Activities Neuromuscular Re-Ed Therapeutic Activities Neuromuscular Re-Ed Neuromuscular Re-Ed Therapeutic Activities Therapeutic Activities Neuromuscular Re-Ed Therapeutic Activities Neuromuscular Re-Ed Therapeutic Activities Neuromuscular Re-Ed Therapeutic Activities Neuromuscular Re-Ed Therapeutic Activities Neuromuscular Re-Ed Therapeutic Activities Neuromuscular Re-Ed PT Evaluation High Complexity 0 Therapeutic Activities Neuromuscular Re-Ed Advance Directives Directive Yes / No Effective Date File Name No Information Encounters Encounter Description Practice Location Reason(s) For Visit Diagnoses Date Provider Providers Copied on Encounter [facility], [address], [place], [place], [id number], [place] tel:[phone] [place] No Information Nov-0 6- 0 Barrera Valente. , [place], [place]. Referring Provider: Lux Giron, [address] [place] [address], [address]. tel:[phone] [facility] [address], [place], [place], [id number], [place] tel:[phone] [place] No Information Oct-1 0 Barrera Valente. , [place], [place]. Referring Provider: Lux Giron [address] [place] [address], [id number]. tel:[phone] [facility] [address], [place], [place], [id number], [place] tel:[phone] [place] No Information Oct-1 0 Barrera Valente. , [place], [place]. Referring Provider: Lux Giron [address] [place] [address], [address]. tel:[phone] [facility] [address], [place], [place], [id number], [place] tel:[phone] [place] No Information Oct-0 9 0 Barrera Valente. , [place], [place]. Referring Provider: Lux Giron [address] [place] [address], [address]. tel:[phone] [facility] [address], [place], [place], [id number], [place] tel:[phone] [place] No Information Mar-0 - 0 Barrera Valente. , [place], [place]. Referring Provider: Lux Giron [address] [place] [address], [address]. tel:[phone] [facility] [address], [place], [place], [id number], [place] tel:[phone] [place] No Information Sep-2 0 Barrera Valente. , [place], [place]. Referring Provider: Lux Giron [address] [place] [address], [address]. tel:[phone] [facility], [address], [place], [place], [id number], [place] tel:[phone] [place] No Information 0 Barrera Valente. , [place], [place]. Referring Provider: Lux Giron [address] [place] [address], [address]. tel:[phone] [facility], [address], [place], [place], [id number], [place] tel:[phone] [place] No Information 0 Barrera Valente. , [place], [place]. Referring Provider: Lux Giron [address] [place] [address], [address]. tel:[phone] [facility] [address], [place], [place], [id number], [place] tel:[phone] [place] No Information 0 Barrera Valente. , [place], [place]. Referring Provider: Lux Giron [address] [place] [address], [address]. tel:[phone] [place] [address], [place], [place], [id number], [place] tel:[phone] [place] No Information 0 Barrera Valente. , [place], [place]. Referring Provider: Lux Giron [address] [place] [address], [address]. tel:[phone] [facility] [address], [place], [place], [id number], [place] tel:[phone] [place] No Information b 0 0 Barrera Valente. , [place], [place]. Referring Provider: Lux Giron [address] [place] [address], [address]. tel:[phone] [facility], [address] [facility] [address], [place], [place], [id number], tel:[phone] [place] No Information 0 [facility]. Referring Provider: Lux Giron, [address] [place] [address], [address]. tel:[phone] [facility] [address], [id number], tel:[phone] [place] No Information 0 [place], [place], . Referring Provider: Lux Giron [address] [place] [address], [address]. tel:[phone] [facility] [address], [id number], tel:[phone] [place] No Information 0 [facility]. Referring Provider: Lux Giron [address] [place] [address], [address]. tel:[phone] [facility] [address], [id number], tel:[phone] [place] No Information 0 [facility]. Referring Provider: Lux Giron [address] [place] [address], [address]. tel:[phone] Family History Family Member Type Diagnosis Age At Onset No Information Payers Payer name Insurance type Covered republican ID Authorblakea timigdalia(s) [facility] CI [id number] Social History Type Description Quantity Date Captured Comments Sex Female Smoking Status No Information Chief Complaint And Reason For Visit No Information Reason For Referral Reason For Referral No Information History Of Present Illness Encounter Date Complaint History Of Prese nt Illness No Information Functional Status Date Functional Assessmen t No Information Instructions Date Instruction Additional Infor mation No Information Assessments Type Assessment Date No Information Patient Care Teams Name Effective Dates (start - stop) Status Members No Information
--- OUTSIDE RECORDS SUMMARY | 2025-04-13 09:06 | XMS_ITS | Clinical Summary ---
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 Gender Identity Not on file Sexual Orientation [...] g 9 9 HUEY N,ONE BOYCL ARIND A Steve Yousif MD Complications:None Delivery Location:This Facil ity ([facility]) 2018 Term 37w 4d 21h 44m 20h 15m/1h 19m/0h 10m 2.48 kg (5 lb 7.5 oz) F Vag-B reech Epidur al N Livin g 9 9 HUEY N,TWO GIRLC AUGUSTO DA Steve Yousif MD Complications:None Delivery Location:This Facil ity ([facility]) Comments:double footli ng breech extraction of twin 2 Comments # 1: 2014 left ova gabriele ectopic txed with MTX then laparoscopic excision of ectopic with ovarian sparing . # 2: 01/05/2019 37 4/7 weeks, DA/DC twins, SOOL, #1- , boy, [place], 5#12, #2- double footling breech extraction, Ruben, 5#7, epidural, DW at [facility]. Last Filed Vital Signs Vital Sign Reading [...] 170.2 cm (5' 7) 06/29/2022 2:13 PM AIRLINE LOUNGE RECEPTIONIST Body Mass Index 23.49 06/29/2022 2:13 PM AIRLINE LOUNGE RECEPTIONIST Plan of Treatment Health Maintenance Due Date Last Done Comments Breast Cancer Screening-Mammogram 1987 Cervical Cancer Screening 1987 Hepatitis C Screening 1987 Varicella Vaccines (1 of 2 - 13+ 2-dose series) 2000 Hepatitis B Screening 2005 Regular Well Visit/Exam 18-64 2005 HPV Vaccines (1 - 3-dose SCDM series) 2014 Depression Screening 01/07/2020 01/06/2019 DTaP/Tdap/Td Vaccine (2 - Td or Tdap) 07/26/2023 07/26/2013 Influenza Vaccine (#1) 2025 2, 06/19/2020, 06/20/2019, Additional history exists Pneumococcal vaccine <65 Aged Out No longer eligible based on patient's age to complete this topic Insurance [facility] H[facility]/PPO Address: [address] [address] [place] [address] [place] [address] [facility] H[facility]/PPO Address: [address] [address] [place] [address] [facility] H[facility]/PPO Address: [address] [address] [place] [address] [facility] H[facility]/PPO Address: [address] [address] [place] [address] Advance Directives For more information, please contact: [phone] * Full Code (Latest Code Status on File) Date Activated Date Inactivated Comments 01/05/2019 2:45 PM 01/07/2019 4:48 PM * Full Code Date Activated Date Inactivated Comments 01/04/2019 5:23 PM 01/05/2019 2:45 PM Full CPR in case of cardiopulmonary arrest Care Teams Associate Professor Of Philosophy Relationship Specialty Start Date End Date Jerri Ventura PA PCP - General Physician Nursing Manager 01/08/20
--- OUTSIDE RECORDS SUMMARY | 2025-04-13 09:06 | XMS_ITS | Clinical Summary ---
Author Organization [facility] Address [address] [place] [address] Care Team Providers Care Studio Artist Name Role Phone Unavailable Primary Care Provider Unavailabl e Social History Tobacco Use Types Packs/Day Years Used Date Smoking Tobacco: Never Assessed Comments Unknown Sex and Gender Information Value Date Recorded Sex Assigned at Not on file Legal Sex Female 10:22 PM SLEEVER Gender Identity Not on file Sexual Orientation Not on file Plan of Treatment Health Maintenance Due Date Last Done Comments Cervical Cancer Screening Pa p Smear (Age 30 to 64) Every 3 Years 1987 Annual Physical 1990 Hepatitis C 2005 DTaP, Tdap and Td Vaccines ( 1 - Tdap) 2006 Hepatitis B Vaccines (1 of 3 - 19+ 3-dose series) 2006 HPV Vaccines (1 - 3-dose SCD M series) 2014 Cervical Cancer Screening Pa p with HPV Testing (Age 30 to 64) Every 5 Years 2017 Cervical Cancer Screening with HPV 2017 COVID-19 Vaccine ( - 2023-2 5 season) 2024 Meningococcal B Vaccine Aged Out No l onger eligible based on patient's age to complete this topic Meningococcal Vaccine Aged Out No cortney marielena eligible based on patient's age to complete this topic Pneumococcal Vaccine: Pediat rics (0 to 5 Years) and At-Risk Patients (6 to 49 Years) Aged Out No longer eligible b ased on patient's age to complete this topic RSV Immunizations Under 20 Months Aged Out No longer eligible based on patient's age to complete this topic
--- OUTSIDE RECORDS SUMMARY | 2025-04-13 09:06 | XMS_ITS | Clinical Summary ---
Author Organization [facility] [email or web address] Address [address] [place] [address] Care Team Providers Care Starch Treating Assistant Name Role Phone Chalo Bartlett MD Primary Care Provider Source Comments [facility],non-owned Affiliates and Associated Physician Practices is amultiple site organization consisting of ambulatory clinics and hospital sitesin [place], [place], [place] and [place]. This disclosure is being madepursuant to the Care Everywhere program and may not contain all information available regarding this patient. 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 Not on file Not [...] VACCINE (1 of 2 - PCV) 2006 HPV VACCINE (1 - 3-dose SCDM series) 2014 PAP SMEAR 09/14/2015 09/14/2012 (Previously completed) DTAP/TDAP/TD VACCINES (2 - T d or Tdap) 07/26/2023 07/26/2013 COVID-19 VACCINE (1 - 2023-2 5 season) 2024 DEPRESSION SCREENING 08/14/2024 INFLUENZA VACCINE (#1) 2025 , 06/14/2016, 06/14/2014 ZOSTER VACCINE (1 of 2) 2037 HIB VACCINE Aged Out No longer eligi ble based on patient's age to complete this topic MENINGOCOCCAL (Group B) VACCINE SHARED DECISION-MAKING Aged Out No longer eligible based on patient's age to complete this topic MENINGOCOCCAL GROUPS A/C/Y/W VACCINE Aged Out No longer eligible b ased on patient's age to complete [place] [address] [facility] Address: [id number] [place] [address] [place] [address] [facility] * Guarantor: AMY VILLAFANA Account Type Relation to Patient Date of Phone Billing Address Personal/Family [address] [place] [address] SELF PAY NO INSURANCE Member Subscriber Plan / Payer (Ef fective for All Dates) Name:Amy Villafana Member ID:Not on file Relation to Subscriber:Not on file Name:AMY VILLAFANA Subscriber ID:Not on file Address: [address] [place] [address] Payer ID:Not on file Group ID:Not on file Type:Self Pay Address: [facility] [place] [address] * Guarantor: AMY VILLAFANA Account Type Relation to Patient Date of Phone Billing Address Personal/Family [address] [place], [facility] SELF PAY NO INSURANCE Member Subscriber Plan / Payer (Ef fective for All Dates) Name:Amy Villafana Member ID:Not on file Relation to Subscriber:Not on file Name:AMY VILLAFANA Subscriber ID:Not on file Address: [address] [place], [address] Payer ID:Not on file Group ID:Not on file Type:Self Pay Address: [facility] * Guarantor: AMY VILLAFANA Account Type Relation to Patient Date of Phone Billing Address Personal/Family [address] [place], [facility] SELF PAY NO INSURANCE Member Subscriber Plan / Payer (Ef fective for All Dates) Name:Amy Villafana Member ID:Not on file Relation to Subscriber:Not on file Name:AMY VILLAFANA Subscriber ID:Not on file Address: [address], [id number] Payer ID:Not on file Group ID:Not on file Type:Self Pay Address: [place] [address] Care Teams Starch Treating Assistant Relationship Specialty Start Date End Date Chalo Bartlett MD PCP - General Internal Medicine 08/25/14
--- OUTSIDE RECORDS SUMMARY | 2025-04-13 09:06 | XMS_ITS | Clinical Summary ---
Author Organization [facility] Address [address] [place] [address] Care Team Providers Care Metal Grinder Name Role Phone Unavailable Primary Care Provider [...] Comments Blood Pressure 130/82 06/26/2015 2:09 PM GEOGRAPHY DEPARTMENT CHAIR Pulse 78 04/15/2015 11:00 AM CDT Temperature 36.6 C (97.9 F) 04/15/2015 11:00 AM CDT Respiratory Rate - - Oxygen Saturation - - Inhaled Oxygen Concentration - - Weight 65.8 kg (145 lb) 06/26/2015 2:09 PM GEOGRAPHY DEPARTMENT CHAIR Height 170.2 cm (5' 7) 06/26/2015 2:09 PM GEOGRAPHY DEPARTMENT CHAIR Body Mass Index 22.71 06/26/2015 2:09 PM GEOGRAPHY DEPARTMENT CHAIR Plan of Treatment Health Maintenance Due Date Last Done Comments DTAP/TDAP/TD VACCINES (1 - Tdap) 2006 HEPATITIS B VACCINES (1 of 3 - 19+ 3-dose series) 08/15 HPV/Cotest (21-29) 2008 HPV VACCINES (1 - 3-dose SCDM series) 2014 CERVICAL CANCER SCREENING 2017 HPV/Cotest (30-65) 2017 PAP SMEAR 2017 INFLUENZA VACCINE (#1) 2025 Insurance [employer] PPO [id number]
[2025-04-13 09:08] VITALS: BP 121/71; PULSE 92; RESP 18; TEMP 36.6; O2SAT 100
--- NOTE | 2025-04-13 09:43 | ED.EYEPROB ---
HPI - Eye Problem General Chief complaint: Eye Problems Stated complaint: Possible sty on R eye Time Seen by Provider: 04/13/25 09:44 Source: patient Mode of arrival: ambulatory Limitations: no limitations History of Present Illness HPI Narrative: 39 y/o female presented for complaint of a pimple to the right lower eyelid for 3 days. States she has been rubbing it often. Denies any drainage, foreign body sensation, swelling or vision changes. She says she will be out of town this coming week and does not want the symptoms to worsen. MD chief complaint: eye pain Related Data Home Medications ?Medication ?Instructions ?Recorded ?Confirmed ?Last Taken ?Type lorazepam 0.5 mg tablet 0.5 mg PO PRN PRN Anxiety 05/05/22 01/19/24 Unknown History Prilosec 04/13/25 Unknown History dupilumab 300 mg/2 mL subcutaneous mg subcut 04/13/25 Unknown History pen injector (Dupixent) Allergies Allergy/AdvReac Type Severity Reaction Status Date / Time cephalexin Allergy Intermediate Hives Verified 04/13/25 09:31 Review of Systems Review of Systems: CONSTITUTIONAL: Denies body aches, fever, chills EYES:Endorses swelling, redness and pain to right lower lid Denies visual changes, FB sensation, photophobia, drainage ENT: Denies rhinorrhea, congestion, sore throat, or otalgia. CARDIOVASCULAR: Denies chest pain, palpitations RESPIRATORY: Denies cough or dyspnea. GASTROINTESTINAL: Denies abdominal pain, nausea, vomiting, or diarrhea. SKIN: Denies rash, itching, or wounds. MUSCULOSKELETAL: Denies back pain, joint pain, or myalgia. NEUROLOGIC: Denies headache, numbness, tingling, or weakness. All systems reviewed & are unremarkable except as noted in HPI and below PMFSH Past Medical History Medical History GERD (gastroesophageal reflux disease) Hemorrhoid ADHD Anxiety and depression Social History Social History Smoking status: Never smoker Alcohol intake: current Drinks per week: 2 Substance use: never Substance use type: does not use Living arrangements: other Additional living arrangements comments: with sp Spiritual care concerns: No Comments At time of signature, I have reviewed and agree with nursing past medical, surgical, social and family history unless otherwise noted. Please see nursing chart for further information. There is no relevant family history pertinent to the presenting complaint Exam Narrative: GENERAL: Well-appearing HEAD: Normocephalic, atraumatic. EYES: Right lower lid with erythematous papule c/w external hordeolum. No conjunctival injection, no eye lid swelling/redness,drainage. PERRLA, EOMI. Lid eversion shows no FB. ENT: Mucous membranes pink and moist. No rhinorrhea. TMs normal bilaterally. Throat normal. Uvula midline. CHEST: Clear to auscultation. HEART: Regular rate and rhythm. ABDOMEN: Soft, nontender, nondistended SKIN: Warm, dry, no rash. Normal skin turgor. NEURO: No focal deficits. Alert and oriented x3 PSYCH: Normal affect. Course Course Emergency Course: Patient is aware of diagnosis, understands and agrees to treatment plan. Anticipatory guidance given. Patient agrees to follow-up as directed and is aware of reasons to seek care at the emergency department. Portions of this record may have been created with voice recognition software Level of Care: Express Care Visit Vital Signs Vital signs: Vital Signs Temperature 97.8 F 04/13/25 09:08 Pulse Rate 92 04/13/25 09:08 Respiratory Rate 18 04/13/25 09:08 Blood Pressure 121/71 04/13/25 09:08 Pulse Oximetry 100 04/13/25 09:08 Oxygen Delivery Room Air 04/13/25 09:08 Temperature 97.8 F 04/13/25 09:08 Pulse Rate 92 04/13/25 09:08 Respiratory Rate 18 04/13/25 09:08 Blood Pressure 121/71 04/13/25 09:08 Pulse Oximetry 100 04/13/25 09:08 Oxygen Delivery Room Air 04/13/25 09:08 MDM - Eye Problem MDM Narrative Medical decision making narrative: Discussed physical exam findings Consistent with a right lower lid stye. Patient states she will be out of town for 1 week, antibiotic prescribed if she develops cellulitis.. Advised supportive measures and signs/symptoms to go to the ER. Pt is appropriate for outpt treatment and f/u. Differential Diagnosis Differential diagnosis: Likely corneal abrasion, conjunctivitis, acute iritis and other Discharge Plan Discharge Clinical Impression: External hordeolum Patient Disposition: Home Condition: Stable Instructions: Antibiotic Any Dill (ED) Additional Instructions: Apply warm, moist compresses on the affected area frequently (for 5 to 10 minutes three to five times per day) in order to help with drainage. Massage and gentle wiping of the affected eyelid after the warm compress can also help with drainage. You can use baby shampoo to wash the eye area Avoid wearing eye makeup or contact lenses Tyelnol and ibuprofen for pain If you develop redness, swelling and pain under the eye you can start the antibiotic If the lesion does not improve within one week, please follow up with an sterile tech for further management. [facility] [phone] [facility] [phone] [facility] [phone] [facility] [phone] Follow up with your primary care provider as needed in 1 week Go to the ER for worsening symptoms or concerns Patient Language: Scottish Prescriptions: New amoxicillin-pot clavulanate 875-125 mg tablet 1 tablet PO Q12H 5 Days Qty: 10 0RF No Action Dupixent Pen 300 mg/2 mL pen injector SUBCUT Prilosec lorazepam 0.5 mg tablet 0.5 mg PO PRN PRN (Reason: Anxiety) Follow-up/Referrals: Lorenzo,ASHLEY Guthrie [Primary Care Provider, Unknown]
== END 2025-04-13 09:50 | disposition home or self-care (01) ==
PROVIDERS: Emergency Provider Nurse Practitioner Family; PCP Physician Assistant
DX: H00.012 Hordeolum externum right lower eyelid (principal); K21.9 Gastro-esophageal reflux disease without esophagitis; F41.9 Anxiety disorder, unspecified
CPT/HCPCS: 99213; G0463

== ENCOUNTER 2025-07-15 14:12 | Emergency (ER) | payer OTHER, SELFPAY ==
[2025-07-15 14:23] VITALS: BP 114/81; PULSE 104; RESP 20; TEMP 37.1; O2SAT 100
[2025-07-15 14:48] LABS: EDCOVIDSCREEN Negative (Negative); EDINFLUASCREEN Negative (Negative); EDINFLUBSCREEN Negative (Negative); EDSTREPNEGPOS1 Negative (Negative)
--- NOTE | 2025-07-15 15:05 | ED.GENADULT ---
HPI - General Adult General Chief complaint: Upper Respiratory Infection Stated complaint: Cough/Ear Problem Source: patient Mode of arrival: ambulatory Limitations: no limitations History of Present Illness HPI narrative: Pt presents for evaluation of sick symptoms for the past week. Symptoms include sore throat, body aches, nasal congestion, clear rhinorrhea, cough, SOB, and and nausea. Denies any fever, vomiting or diarreha. her and son were seen here earlier today for sick symptoms. She has tried OTC agents without much improvement. She does not smoke. Related Data Home Medications ?Medication ?Instructions ?Recorded ?Confirmed ?Last Taken ?Type lorazepam 0.5 mg tablet 0.5 mg PO PRN PRN Anxiety 05/05/22 01/19/24 Unknown History Prilosec 04/13/25 Unknown History dupilumab 300 mg/2 mL subcutaneous mg subcut 04/13/25 Unknown History pen injector (Dupixent) fluoxetine 20 mg capsule mg 07/15/25 Unknown History lamotrigine 25 mg tablet mg 07/15/25 Unknown History Allergies Allergy/AdvReac Type Severity Reaction Status Date / Time cephalexin Allergy Intermediate Hives Verified 07/15/25 14:38 Review of Systems Review of Systems: CONSTITUTIONAL: Denies fever, chills, or sweats. EYES: Denies visual changes, redness, or discharge. ENT: reports sinus congestion, clear rhinorrhea, sore throat, crackling in the ears CARDIOVASCULAR: Denies chest pain, palpitations, or edema. RESPIRATORY: reports cough and shortness of breath GASTROINTESTINAL: Denies abdominal pain, nausea, vomiting, or diarrhea. GENITOURINARY: Denies dysuria or hematuria. SKIN: Denies rash or itching. MUSCULOSKELETAL: reports generalized body NEUROLOGIC: reports headache. Denies numbness, dizziness, or weakness. PSYCHIATRIC: Denies anxiety or depression. [facility] Past Medical History Medical History GERD (gastroesophageal reflux disease) Hemorrhoid ADHD Anxiety and depression Surgical History Surgical History History of appendectomy Family History Family History Mother Family history non-contributory Social History Social History Smoking status: Never smoker Alcohol intake: current Drinks per week: 2 Substance use: never Substance use type: does not use Living arrangements: other Additional living arrangements comments: with sp Spiritual care concerns: No Exam Narrative: GENERAL: appears acutely ill but nontoxic HEAD: Normocephalic, atraumatic. EYES: PERRLA and EOMI. ENT: Nares clear, no rhinorrhea or epistaxis. Mucous membranes moist. Oropharynx without tonsillar hypertrophy exudate or other lesions. Bilateral TMs pearly stone nonbulging NECK: Supple. No adenopathy or masses. No carotid bruits or JVD CHEST: cough present on exam. Clear to auscultation. No respiratory distress. No wheezes rales or rhonchi HEART: Regular rate and rhythm. No murmur heard. Normal peripheral pulses. ABDOMEN: Soft, nontender, nondistended, normal active bowel sounds. EXTREMITIES: Normal range of motion. No edema. SKIN: Warm, dry, no rash. NEURO: No focal deficits. Alert and oriented x3. PSYCH: Normal mood and affect. Course Course Emergency Course: This is a 39-year-old female who presented for evaluation of sick symptoms. COVID, influenza, strep were all negative. She has no adventitious lung sounds warranting chest x-ray. Exam consistent with acute viral syndrome. Will discharge with prednisone, Tessalon and Zofran. Increase hydration. Follow up with primary provider. Go to the ER for worsening symptoms. Patient in agreement with plan of care. Level of Care: Express Care Visit Vital Signs Vital signs: Vital Signs Temperature 37.1 C 07/15/25 14:23 Pulse Rate 104 H 07/15/25 14:23 Respiratory Rate 20 07/15/25 14:23 Blood Pressure 114/81 07/15/25 14:23 Pulse Oximetry 100 07/15/25 14:23 Oxygen Delivery Room Air 07/15/25 14:23 Temperature 37.1 C 07/15/25 14:23 Pulse Rate 104 H 07/15/25 14:23 Respiratory Rate 20 07/15/25 14:23 Blood Pressure 114/81 07/15/25 14:23 Pulse Oximetry 100 07/15/25 14:23 Oxygen Delivery Room Air 07/15/25 14:23 MDM Differential Diagnosis Differential Diagnosis: Flu versus COVID versus strep versus pneumonia versus other acute viral syndrome versus other Lab Data Labs: Lab Results 07/15/25 Range/Units 14:47 POC Influenza A Ag Negative (Negative) POC Influenza B Ag Negative (Negative) POC SARS CoV-2 Ag Negative (Negative) POC Grp A Strep Screen Negative (Negative) Discharge Plan Discharge Clinical Impression: Acute viral syndrome Patient Disposition: Home Condition: Stable Instructions: Antibiotic Form, Viral Syndrome (ED) Patient Language: South Sudanese Prescriptions: New prednisone 50 mg tablet 50 mg PO DAILY Qty: 5 0RF benzonatate 200 mg capsule 200 mg PO TID PRN (Reason: cough) Qty: 30 0RF ondansetron 4 mg tablet,disintegrating 4 mg PO Q6H PRN (Reason: nausea and vomiting) Qty: 15 0RF No Action Dupixent Pen 300 mg/2 mL pen injector SUBCUT Prilosec lamotrigine 25 mg tablet fluoxetine 20 mg capsule lorazepam 0.5 mg tablet 0.5 mg PO PRN PRN (Reason: Anxiety) Follow-up/Referrals: Lorenzo,ASHLEY Guthrie [Primary Care Provider, Unknown] Time of Disposition: 15:05
--- OUTSIDE RECORDS SUMMARY | 2025-07-15 15:22 | XMS_ITS | Data Portability ---
Author Organization [facility], Main Office Address [address] [place] [address] Assessment No assessment recorded. Plan of Treatment Reminders Order Date Submit Date Provider Last Modified By Organization Details Last Modified Time Details Appointments None recorded. Lab lipid panel, serum 2022 023 [email or web address] [facility], [address] [place] [address], [address], 3 10:03:11 TSH + free T4, serum 2022 023 [email or web address] [facility], [address] [place] [address], [address], 3 10:03:10 CBC w/ auto diff 2022 023 [email or web address] [facility], [address] [place] [address], [address], 3 10:03:10 CMP, serum or plasma 2022 023 [email or web address] [facility], [address] [place] [address], [address], 3 10:03:10 iron + TIBC + ferritin, serum 2022 023 [email or web address] [facility], [address] [place] [address], [address], 3 10:03:11 thyroid peroxidase (tpo) Ab, serum 2022 023 [email or web address] [facility], [address] [facility] [address], [place], [address], 3 10:03:11 thyroglobul in Ab, serum 2022 023 [email or web address] [facility], [address] [facility] [address], [place], [address], 3 10:03:11 hormone panel, serum or plasma 2022 023 [email or web address] [facility], [address] [facility] [address], [place], [address], 3 10:03:11 Referral None recorded. Procedures None recorded. Surgeries None recorded. Imaging None recorded. Medication Orders citalopram 20 mg tablet 2022 023 [id number], [address] [place], [address], 3 15:20:23 Patient TargetsNo targets recorded. Patient [...] with diabe martha: <7.0 Not Available [facility] ([facility]) [address] [facility], [place], [address], 01/04/2022 03:07:32 01/01/20 22 01/01/2022 RHEUM ATOID ARTHR ITIS PROFI LE rheumatoid factor (rf) <10.0 IU/mL <14.0 Not Available [facility] ([facility]) [address] [facility], [place], [address], 01/04/2022 03:07:32 01/01/20 22 01/04/2022 RHEUM ATOID ARTHR ITIS PROFI LE anti-ccp Ab, IgG/IgA 8 units 0-19 Negat sofy <20 Weak posit sofy 20 - 39 Moder ate posit sofy 40 - 59 Stron g posit sofy >59 Not Available [facility] ([facility]) [address] [facility], [place], [address], 01/04/2022 03:07:32 01/01/20 22 01/01/2022 VITAM IN B12 AND FOLAT E vitamin B12 716 pg/mL 232-12 45 Not Available [facility] ([facility]) [address] [place], [address], 01/04/2022 03:07:31 01/01/20 22 01/01/2022 VITAM IN B12 AND FOLAT E folate (folic acid), serum >20.0 NG/mL >3.0 A serum folat e eduardo ntrat ion of less than 3.1 ng/mL is consi dered to repre sent clini lenny defic iency . Not Available [facility] ([facility]) [address] [place], [address], 01/04/2022 03:07:31 01/01/20 22 01/01/2022 LIPID PANEL W/ CHOL/ HDL RATIO cholesterol, total 201 mg/dL 100-19 9 above high normal Not Available [facility] ([facility]) [address] [place], [address], 01/04/2022 03:07:31 01/01/20 22 01/01/2022 LIPID PANEL W/ CHOL/ HDL RATIO triglyceride s 78 mg/dL 0-149 Not Available [facility] ([facility]) [address] [place], [address], 01/04/2022 03:07:31 01/01/20 22 01/01/2022 LIPID PANEL W/ CHOL/ HDL RATIO HDL cholesterol 62 mg/dL >39 Not Available [facility] ([facility]) [address] [facility] [place], [address], 01/04/2022 03:07:31 01/01/20 22 01/01/2022 LIPID PANEL W/ CHOL/ HDL RATIO VLDL cholesterol lenny 14 mg/dL 5-40 Not Available [facility] ([facility]) [address] [facility], [place], [address], 01/04/2022 03:07:31 01/01/20 22 01/01/2022 LIPID PANEL W/ CHOL/ HDL RATIO LDL chol calc ([facility]) 125 mg/dL 0-99 above high normal Not Available [facility] ([facility]) [address] [place], [address], 01/04/2022 03:07:31 01/01/20 22 01/01/2022 LIPID PANEL W/ CHOL/ HDL RATIO 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 chol/HDL ratio 3.2 ratio 0.0-4. 4 T. Chol/ HDL Ratio Men Women 1/2 Avg.R isk 3.4 3.3 Avg.R isk 5.0 4.4 2X Avg.R isk 9.6 7.1 3X Avg.R isk 23.4 11.0 Not Available [facility] ([facility]) [address] [facility], [place], [address], 01/04/2022 03:07:31 01/01/20 22 12/31/2021 MARIO COMPR [...] ----- ----- ----- ----- --- ----- ---- MECHANICAL ASSEMBLY Mixed Conne ctive Tissu e Disea se 95% (U1 nRNP, SLE 30 - 50% anti- ribon ucleo prote in) Polym yosit is and/o r [place] tomyo sitis 20% ----- ----- ----- ----- - ----- ----- ----- ----- ---- ----- ---- Scl-7 0 (anti DNA Scler oderm a (diff use) 20 - 35% topoi alicia ase) Crest 13% ----- ----- ----- ----- - ----- ----- ----- ----- ---- ----- ---- Rose Mary-1 Polym yosit is and/o r [place] tomyo sitis 20 - 40% ----- ----- ----- ----- - ----- ----- ----- ----- ---- ----- ---- Centr omere B Scler oderm a - Crest varia nt 80% Not Available [facility] ([facility]) [address] [place], [address], 01/04/2022 03:07:31 01/01/20 22 01/01/2022 MARIO COMPR EHENS SOFY PANEL anti-DNA (ds) Ab qn <1 IU/mL 0-9 Negat sofy <5 Equiv ocal 5 - 9 Posit sofy >9 Not Available [facility] ([facility]) [address] [place], [address], 01/04/2022 03:07:31 01/01/20 22 01/01/2022 MARIO COMPR EHENS SOFY PANEL shipping and receiving associate antibodies <0.2 ai 0.0-0. 9 Not Available [facility] ([facility]) [address] [place], [address], 01/04/2022 03:07:31 01/01/20 22 01/01/2022 MARIO COMPR EHENS SOFY PANEL farrell antibodies <0.2 ai 0.0-0. 9 Not Available [facility] ([facility]) [address] [place], [address], 01/04/2022 03:07:31 01/01/20 22 01/01/2022 MARIO COMPR EHENS SOFY PANEL antisclerode rma-70 antibodies <0.2 ai 0.0-0. 9 Not Available [facility] ([facility]) [address] [place], [address], 01/04/2022 03:07:31 01/01/20 22 01/01/2022 MARIO COMPR EHENS SOFY PANEL sjogren's anti-ss-A <0.2 ai 0.0-0. 9 Not Available [facility] ([facility]) [address] [place], [address], 01/04/2022 03:07:31 01/01/20 22 01/01/2022 MARIO COMPR EHENS SOFY PANEL sjogren's anti-ss-B <0.2 ai 0.0-0. 9 Not Available [facility] ([facility]) [address] [place], [address], 01/04/2022 03:07:31 01/01/20 22 01/01/2022 MARIO COMPR EHENS SOFY PANEL antichromati n antibodies <0.2 ai 0.0-0. 9 Not Available [facility] ([facility]) [address] [place], [address], 01/04/2022 03:07:31 01/01/20 22 01/01/2022 MARIO COMPR EHENS SOFY PANEL anti-rose mary-1 <0.2 ai 0.0-0. 9 Not Available [facility] ([facility]) [address] [place], [address], 01/04/2022 03:07:31 01/01/20 22 01/01/2022 MARIO COMPR EHENS SOFY PANEL anti-centrom ere B antibodies <0.2 ai 0.0-0. 9 Not Available [facility] ([facility]) [address] [place], [address], 01/04/2022 03:07:31 01/01/20 22 01/01/2022 CBC WITH DIFFE RENTI AL/PL ATELE T WBC 3.6 x10e3 /uL 3.4-10 .8 Not Available [facility] ([facility]) [address] [facility], [place], [address], 01/04/2022 03:07:30 01/01/20 22 01/01/2022 CBC WITH DIFFE RENTI AL/PL ATELE T RBC 4.11 x10e6 /uL 3.77-5 .28 Not Available [facility] ([facility]) [address] [place], [address], 01/04/2022 03:07:30 01/01/20 22 01/01/2022 CBC WITH DIFFE RENTI AL/PL ATELE T hemoglobin 12.9 g/dL 11.1-1 5.9 Not Available [facility] ([facility]) [address] [place], [address], 01/04/2022 03:07:30 01/01/20 22 01/01/2022 CBC WITH DIFFE RENTI AL/PL ATELE T hematocrit 39.3 % 34.0-4 6.6 Not Available [facility] ([facility]) [address] [place], [address], 01/04/2022 03:07:30 01/01/20 22 01/01/2022 CBC WITH DIFFE RENTI AL/PL ATELE T MCV 96 fL 79-97 Not Available [facility] ([facility]) [address] [place], [address], 01/04/2022 03:07:30 01/01/20 22 01/01/2022 CBC WITH DIFFE RENTI AL/PL ATELE T MCH 31.4 pg 26.6-3 3.0 Not Available [facility] ([facility]) [address] [facility], [place], [address], 01/04/2022 03:07:30 01/01/20 22 01/01/2022 CBC WITH DIFFE RENTI AL/PL ATELE T MCHC 32.8 g/dL 31.5-3 5.7 Not Available [facility] ([facility]) [address] [facility], [place], [address], 01/04/2022 03:07:30 01/01/20 22 01/01/2022 CBC WITH DIFFE RENTI AL/PL ATELE T RDW 12.1 % 11.7-1 5.4 Not Available [facility] ([facility]) [address] [facility], [place], [address], 01/04/2022 03:07:30 01/01/20 22 01/01/2022 CBC WITH DIFFE RENTI AL/PL ATELE T platelets 211 x10e3 /uL 150-45 0 Not Available [facility] ([facility]) [address] [facility], [place], [address], 01/04/2022 03:07:30 01/01/20 22 01/01/2022 CBC WITH DIFFE RENTI AL/PL ATELE T neutrophils 49 % not estab. Not Available [facility] ([facility]) [address] [facility], [place], [address], 01/04/2022 03:07:30 01/01/20 22 01/01/2022 CBC WITH DIFFE RENTI AL/PL ATELE T lymphs 38 % not estab. Not Available [facility] ([facility]) [address] [place], [address], 01/04/2022 03:07:30 01/01/20 22 01/01/2022 CBC WITH DIFFE RENTI AL/PL ATELE T monocytes 8 % not estab. Not Available [facility] ([facility]) [address] [place], [address], 01/04/2022 03:07:30 01/01/20 22 01/01/2022 CBC WITH DIFFE RENTI AL/PL ATELE T eos 4 % not estab. Not Available [facility] ([facility]) [address] [place], [address], 01/04/2022 03:07:30 01/01/20 22 01/01/2022 CBC WITH DIFFE RENTI AL/PL ATELE T basos 1 % not estab. Not Available [facility] ([facility]) [address] [facility], [place], [address], 01/04/2022 03:07:30 01/01/20 22 01/01/2022 CBC WITH DIFFE RENTI AL/PL ATELE T immature cells grocery stock clerk Not Available [facility] ([facility]) [address] [place], [address], 01/04/2022 03:07:30 01/01/20 22 01/01/2022 CBC WITH DIFFE RENTI AL/PL ATELE T neutrophils (absolute) 1.8 x10e3 /uL 1.4-7. 0 Not Available [facility] ([facility]) [address] [place], [address], 01/04/2022 03:07:30 01/01/20 22 01/01/2022 CBC WITH DIFFE RENTI AL/PL ATELE T lymphs (absolute) 1.4 x10e3 /uL 0.7-3. 1 Not Available [facility] ([facility]) [address] [place], [address], 01/04/2022 03:07:30 01/01/20 22 01/01/2022 CBC WITH DIFFE RENTI AL/PL ATELE T monocytes(ab solute) 0.3 x10e3 /uL 0.1-0. 9 Not Available [facility] ([facility]) [address] [facility], [place], [address], 01/04/2022 03:07:30 01/01/20 22 01/01/2022 CBC WITH DIFFE RENTI AL/PL ATELE T eos (absolute) 0.2 x10e3 /uL 0.0-0. 4 Not Available [facility] ([facility]) [address] [facility], [place], [address], 01/04/2022 03:07:30 01/01/20 22 01/01/2022 CBC WITH DIFFE RENTI AL/PL ATELE T baso (absolute) 0.0 x10e3 /uL 0.0-0. 2 Not Available [facility] ([facility]) [address] [facility], [place], [address], 01/04/2022 03:07:30 01/01/20 22 01/01/2022 CBC WITH DIFFE RENTI AL/PL ATELE T immature granulocytes 0 % not estab. Not Available [facility] ([facility]) [address] [facility], [place], [address], 01/04/2022 03:07:30 01/01/20 22 01/01/2022 CBC WITH DIFFE RENTI AL/PL ATELE T immature grans (abs) 0.0 x10e3 /uL 0.0-0. 1 Not Available [facility] ([facility]) [address] [place], [address], 01/04/2022 03:07:30 01/01/20 22 01/01/2022 CBC WITH DIFFE RENTI AL/PL ATELE T NRBC grocery stock clerk Not Available [facility] ([facility]) [address] [facility], [place], [address], 01/04/2022 03:07:30 01/01/20 22 01/01/2022 CBC WITH DIFFE RENTI AL/PL ATELE T hematology comments: grocery stock clerk Not Available [facility] ([facility]) [address] [facility], [place], [address], 01/04/2022 03:07:30 01/01/20 22 01/01/2022 TSH+F REE T4 TSH 1.330 uIU/m L 0.450- 4.500 Not Available [facility] ([facility]) [address] [facility] [place], [address], 01/04/2022 03:07:30 01/01/20 22 01/01/2022 TSH+F REE T4 T4,free(dire ct) 1.18 NG/dL 0.82-1 .77 Not Available [facility] ([facility]) [address] [place], [address], 01/04/2022 03:07:30 01/01/20 22 01/01/2022 CMP14 +EGFR glucose 90 mg/dL 65-99 Not Available [facility] ([facility]) [address] [place], [address], 01/04/2022 03:07:29 01/01/20 22 01/01/2022 CMP14 +EGFR BUN 12 mg/dL 6-20 Not Available [facility] ([facility]) [address] [place], [address], 01/04/2022 03:07:29 01/01/20 22 01/01/2022 CMP14 +EGFR creatinine 0.75 mg/dL 0.57-1 .00 Not Available [facility] ([facility]) [address] [place], [address], 01/04/2022 03:07:29 01/01/20 22 01/01/2022 CMP14 +EGFR eGFR 107 mL/mi n/1.7 3 >59 Not Available [facility] ([facility]) [address] [place], [address], 01/04/2022 03:07:29 01/01/20 22 01/01/2022 CMP14 +EGFR BUN/creatini ne ratio 16 9-23 Not Available [facility] ([facility]) [address] [place], [address], 01/04/2022 03:07:29 01/01/20 22 01/01/2022 CMP14 +EGFR sodium 141 mmol/ L 134-14 4 Not Available [facility] ([facility]) [address] [place], [address], 01/04/2022 03:07:29 01/01/20 22 01/01/2022 CMP14 +EGFR potassium 4.3 mmol/ L 3.5-5. 2 Not Available [facility] ([facility]) [address] [place], [address], 01/04/2022 03:07:29 01/01/20 22 01/01/2022 CMP14 +EGFR chloride 103 mmol/ L 96-106 Not Available [facility] ([facility]) [address] [place], [address], 01/04/2022 03:07:29 01/01/20 22 01/01/2022 CMP14 +EGFR carbon dioxide, total 23 mmol/ L 20-29 Not Available [facility] ([facility]) [address] [place], [address], 01/04/2022 03:07:29 01/01/20 22 01/01/2022 CMP14 +EGFR calcium 9.1 mg/dL 8.7-10 .2 Not Available [facility] ([facility]) [address] [place], [address], 01/04/2022 03:07:29 01/01/20 22 01/01/2022 CMP14 +EGFR protein, total 6.7 g/dL 6.0-8. 5 Not Available [facility] ([facility]) [address] [place], [address], 01/04/2022 03:07:29 01/01/20 22 01/01/2022 CMP14 +EGFR albumin 4.6 g/dL 3.8-4. 8 Not Available [facility] ([facility]) [address] [place], [address], 01/04/2022 03:07:29 01/01/20 22 01/01/2022 CMP14 +EGFR globulin, total 2.1 g/dL 1.5-4. 5 Not Available [facility] ([facility]) [address] [place], [address], 01/04/2022 03:07:29 01/01/20 22 01/01/2022 CMP14 +EGFR A/G ratio 2.2 1.2-2. 2 Not Available [facility] ([facility]) [address] [place], [address], 01/04/2022 03:07:29 01/01/20 22 01/01/2022 CMP14 +EGFR bilirubin, total 0.6 mg/dL 0.0-1. 2 Not Available [facility] ([facility]) [address] [place], [address], 01/04/2022 03:07:29 01/01/20 22 01/01/2022 CMP14 +EGFR alkaline phosphatase 45 IU/L 44-121 Not Available [facility] ([facility]) [address] [place], [address], 01/04/2022 03:07:29 01/01/20 22 01/01/2022 CMP14 +EGFR AST (SGOT) 15 IU/L 0-40 Not Available [facility] ([facility]) [address] [place], [address], 01/04/2022 03:07:29 01/01/20 22 01/01/2022 CMP14 +EGFR ALT (SGPT) 9 IU/L 0-32 Not Available [facility] ([facility]) [address], [place], [address], 01/04/2022 03:07:29 04/13/20 22 03/25/2022 home sleep study No observ ation record ed. [id number] [facility] [address], [place], [address], 10/12/2022 21:31:19 07/27/20 22 07/15/2022 XR, chest , 2 view No observ ation record ed. [id number] [facility] [address] [place], [address], 10/12/2022 21:31:19 08/22/19 23 07/15/2022 XR, chest , 2 view No observ ation record ed. [id number] [facility] [address] [place], [address], 10/12/2022 21:31:19 Result Notes None recorded. Problems Name Problem SNOMED Code Status Onset Date Resolution Date Notes Provider Name and Address Organization Details Recorded Time Insomnia 887478341 Active 2019 Not Available [facility] 3 21:29:44 Mixed anxiety and depressive disorder 388534387 Active 2019 Not Available [facility] 3 21:29:44 Eruption 914506611 Active 2021 Not Available [facility] 3 21:29:44 Pruritic disorder 100558340 Active 2021 Not Available [facility] 3 21:29:44 Attention deficit hyperactivity disorder 807494721 Active 2021 Not Available [facility] 3 21:29:44 Dyssomnia 88619499 Active 2021 Not Available [facility] 3 21:29:45 Sleep apnea 30149855 Active 2021 Not Available [facility] 3 21:29:45 Anxiety 29223695 Active 2021 Not Available [facility] 3 21:29:45 Acute sinusitis 48332819 Active 2021 Not Available [facility] 3 21:29:44 Sleep disorder 41088340 Active 2021 Not Available [facility] 3 21:29:44 Cough 43823277 Active 2021 Not Available [facility] 3 21:29:45 Candidiasis of vagina 23117550 Active 2022 Not Available [facility] 3 21:29:45 Generalized anxiety disorder 80989163 Active 2022 KARLA Seaman [address], [place], [address] , [employer] 3 15:19:41 Major depressive disorder 158266024 Active 2022 KARLA Seaman [address], [address], [place], [address] , [employer] 3 15:19:46 Fatigue 07220370 Active 2022 KARLA Seaman [address], [place], [address] , [employer] 3 15:20:40 Upper respiratory infection 94517400 Active 2022 KARLA Seaman [address], [place], [address] , [employer] 3 13:40:44 Diarrhea 94267123 Active 2022 KARLA Seaman [address], [place], [address] , [employer] 3 15:58:23 Problem Notes None recorded. Procedures Surgical History Date Name Laterality Status Provider Name and Address Organization Details Recorded Time removal of product of conception of ectopic completed Not Available [facility] 3 21:28:48 Sinus Surgery completed Not Available [facility] 10/12/2022 21:28:48 Tonsillectomy completed Not Available [facility] 10/12/2022 21:28:48 laparoscopic ablation of pelvic endometriosis completed Not Available [facility] 10/12/2022 21:28:48 Appendectomy completed Not Available [facility] 10/12/2022 21:28:48 Excisions - Specify completed Not Available [facility] 10/12/2022 21:28:48 Imaging Results None recorded. Procedure Notes None recorded. Medical Equipment None Reported. Allergies Allergen ID Allergen Name Allergen Category Reaction Reaction Severity Criticality Documentation Date Start Date Code Code System Note Provider Name and Address Organization Details Recorded Time 31633 cephalexi n medicatio n Not available Not available Not available 10/12/20222230 RxNorm Not Available [facility] 21:31:15 Medications Name Sig Start Date Stop [...] mass index (BMI) Body height Oxygen saturation Heart rate Respiratory rate Body temperature Body weight Provider Name and Address Organization Details Last Updated DateTime 2 24.3 kg/m2 170.18 cm 98 % 78 /min 16 /min 98.4 [degF] 12928.8 2 g Not Available [facility] 3 21:29:20 Date Recorded Body height Body temperature Body mass index (BMI) Body weight Respiratory rate Oxygen saturation Heart rate Systolic And Diastolic Provider Name and Address Organization Details Last Updated DateTime 3 170.18 cm 97.3 [degF] 25.7 kg/m2 58660.1 5 g 16 /min 99 % 83 /min 122/80 mm[Hg] BHUMI Pyle [place] [facility] 3 14:58:11 Date Recorded Body mass index (BMI) Body height Oxygen saturation Heart rate Respiratory rate Body temperature Body weight Systolic And Diastolic Provider Name and Address Organization Details Last Updated DateTime 2 24.7 kg/m2 170.18 cm 98 % 81 /min 16 /min 98.5 [degF] 43637.8 8 g 110/70 mm[Hg] Not Available [facility] 3 21:29:16 Date Recorded Body mass index (BMI) Body height Oxygen saturation Heart rate Body temperature Body weight Systolic And Diastolic Provider Name and Address Organization Details Last Updated DateTime 1 23.5 kg/m2 170.18 cm 98 % 74 /min 97.2 [degF] 26606.8 6 g 110/70 mm[Hg] Not Available [facility] 3 21:29:16 Date Recorded Body height Oxygen saturation Heart rate Respiratory rate Body temperature Systolic And Diastolic Provider Name and Address Organization Details Last Updated DateTime 2 170.18 cm 98 % 79 /min 16 /min 97.8 [degF] 110/70 mm[Hg] Not Available [facility] 3 21:29:16 Social History Question Answer Notes LastModified by Organizat ion Details LastModified Time Tobacco Smoking Status Current Every Day Smoker Not Available [facility] 10/12/2022 21:28:36 What Is Your Level Of Caffeine Consumption? Heavy [id number] Information not available 10/12/2022 How Much Tobacco Do You Chew? None [id number] Information not available 10/12/2022 In The 14 Days Before Symptom Onset, Have You Had Close Contact With A Laboratory-confirm ed COVID-19 While That Case Was Ill? No [id number] Information not available 10/12/2022 In The 14 Days Before Symptom Onset, Have You Had Close Contact With A Person Who Is Under Investigation For COVID-19 While That Person Was Ill? No [id number] Information not available 10/12/2022 What Type Of Diet Are You Following? REGULAR [id number] Information not available 10/12/2022 Which Illicit Or Recreational Drugs Have You Used? None [id number] Information not available 10/12/2022 Have There Been Any Changes To Your Family Or Social Situation? No [id number] Information not available 10/12/2022 Do You Use Insect Repellent Routinely? No [id number] Information not available 10/12/2022 What Is Your Relationship Status? [id number] Information not available 10/12/2022 Do You Use Your Seat Belt Or Car Seat Routinely? Yes [id number] Information not available 10/12/2022 Do You Have Smoke And Carbon Monoxide Detectors In Your Home? Yes [id number] Information not available 10/12/2022 How Much Tobacco Do You Smoke? No [id number] Information not available 10/12/2022 Do You Use Sunscreen Routinely? Yes [id number] Information not available 10/12/2022 Have You Recently Traveled Abroad? No [id number] Information not available 10/12/2022 Do You Have Any Dietary Restrictions? No [id number] Information not available 10/12/2022 Sex: Unknown Functional Status Question Answer Note LastModified by Organizat ion Details LastModified Time Do you use any illicit or recreational drugs? No [id number] Information not available 10/12/2022 Do you or have you ever used any other forms of tobacco or nicotine? No [id number] Information not available 10/12/2022 What is your level of alcohol consumption? Moderate [id number] Information not available 10/12/2022 Do you or have you ever used smokeless tobacco? Never used smokeless tobacco [id number] Information not available 10/12/2022 Are you currently employed? 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 Never used electronic cigarettes [id number] Information not available 10/12/2022 What is your exercise level? Heavy [id number] Information not available 10/12/2022 Mental Status None recorded. Family History Relationship Description Onset Age of this Age Resolved Age Notes LastModified by Organization Details LastModified Time Mother Family history of stroke [id number] Not available 10/12/2022 21:28:49 Mother Diabetes mellitus [id number] Not available 10/12/2022 21:28:49 Mother Malignant neoplasm of breast [id number] Not available 10/12/2022 21:28:49 Maternal Grandfather Family history of stroke [id number] Not available 10/12/2022 21:28:49 Maternal Grandfather Diabetes mellitus MIGRATION.343 [id number] Not available 10/12/2022 21:28:50 Maternal Uncle Family history of stroke MIGRATION.377 [id number] Not available 10/12/2022 21:28:50 Maternal Aunt Malignant neoplasm of breast MIGRATION.603 [id number] Not available 10/12/2022 21:28:50 Maternal Grandmother Malignant neoplasm of breast MIGRATION.725 [id number] Not available 10/12/2022 21:28:50 Medical History Condition [...] influenza, unspecified formulation 2 completed Not Available [facility] 10/12/2022 21:31:12 COVID-19, mRNA, LNP-S, PF, 100 mcg/0.5mL dose or 50 mcg/0.25mL dose 2 completed Not Available [facility] 10/12/2022 21:31:12 COVID-19, mRNA, LNP-S, PF, 30 mcg/0.3 mL dose 1 completed Not Available [facility] 10/12/2022 21:31:12 Influenza, split virus, quadrivalent, preservative 0 completed Not Available [facility] 10/12/2022 21:31:12 Past Encounters Encounter ID Performer Location Encounter Start Date Encounter Closed Date Diagnosis/Indication Diagnosis SNOMED-CT Code Diagnosis ICD10 Code Diagnosis IMO Codes Diagnosis Note [id number] KARLA Seaman [facility] [place] [address] [place] [address] 01/28/2021 00:00:00 02/09/2021 23:43:58 [id number] [facility] [place] [address] [place] [address] 02/09/2021 00:00:00 02/09/2021 12:13:30 [id number] KARLA Seaman [facility] [place] [address] [place] [address] 05/04/2021 00:00:00 05/11/2021 23:23:58 [id number] KARLA Seaman [facility] [place] [address] [place] [address] 11/01/2021 00:00:00 11/10/2021 11:00:04 [id number] uJnito Chen MD [facility] [place] [address] [place] [address] 02/22/2022 00:00:00 02/23/2022 13:51:14 [id number] KARLA Seaman [facility] [place] [address] [place] [address] 05/13/2022 00:00:00 05/13/2022 09:44:55 [id number] KARLA Seaman [facility] [place] [address] [place] [address] 11/30/2022 14:52:51 11/30/2022 15:22:56 Generalized anxiety disorder 72309469 F41.1 start citalopram 20mg daily. may take 1/2 tab daily to ease on. Major depr essive disorder 509197559 F32.9 as above Fatigue 60315401 R53.83 check full lab panel for fatigue Cholesterol screening 27 4777145 Z13.220 fasting lipids due Health Concerns Section Related Observation LastModified by Organization Detai ls LastModified Time None Recorded Concern Status LastModified by Organization Details LastModified Time None Recorded Advance Directives Directive None Recorded Payers Insurance Date Sequence Insurance Name Policy Number Policy Fraser Covered Member ID Fraser Member ID Guarantor Name 12/09/2022 1 [facility] [id number] Eron Villafana [id number] Martine Villafana Notes Date Note Type Note Provider Name and Address Organization Details Recorded Time 12/01/19 23 text/ht ml Anxiety/DepressionReported by PatientHPIFor severity, patient reportsinterference with household activities,interference with sleep, andinterference with workbut reportsdenies suicidal ideationsandable to maintain relationships. For associated symptoms, patient reportsemotional lability,high irritability,anxiety,depression,i nsomnia, andsleep disturbancesbut reportsdenies homicidal ideations,no significant weight gain,no significant weight loss,no visual/auditory hallucinations,no delusions, andno shortness of breath(very fatigue). For duration, patient reportssymptoms lasting over 2 weeks. For onset/timing, patient reportsstill present. For context, patient reportsno major life stressors. For quality, (doesnt matter time of day.). For modifying factors, (rxwhen she was on vacation she forgot her fluoxetine so she didnt take it the whole time.). FatigueReported by PatientHPIFor severity, patient reportsworseningbut reportsnormal exercise habitsandnormal activity. For timing, patient reportsworse. For context, patient reportssymptoms do not improve on weekends/vacationsbut reportsno problems/stress at work or home. For modifying factors, patient reportsnew stressors in life. For associated symptoms, patient reportsdepressionandanxietybut reportsno drug/alcohol withdrawal. For quality, patient reportscontinuous. For duration, patient reportsconstant. KARLA Seaman [address] [facility], [facility] [address], [place], [address], [facility] 12/08/2022 22:54:30 OBGyn Episode No OBEpisode recorded.
--- OUTSIDE RECORDS SUMMARY | 2025-07-15 15:22 | XMS_ITS | Clinical Summary ---
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 Pulse 78 04/15/2015 11:00 AM CDT Temperature 36.6 C (97.9 F) 04/15/2015 11:00 AM CDT Respiratory Rate - - Oxygen Saturation - - Inhaled Oxygen Concentration - - Weight 65.8 kg (145 lb) 06/26/2015 2:09 PM GATE TECHNICIAN Height 170.2 cm (5' 7) 06/26/2015 2:09 PM GATE TECHNICIAN Body Mass Index 22.71 06/26/2015 2:09 PM GATE TECHNICIAN Plan of Treatment Health Maintenance Due Date Last Done Comments DTAP/TDAP/TD VACCINES (1 - Tdap) 2006 HEPATITIS B VACCINES (1 of 3 - 19+ 3-dose series) 08/15 HPV/Cotest (21-29) 2008 HPV VACCINES (1 - 3-dose SCDM series) 2014 CERVICAL CANCER SCREENING 2017 HPV/Cotest (30-65) 2017 PAP SMEAR 2017 INFLUENZA VACCINE (#1) 2025 Insurance OPTIONS PPO [id number]
--- OUTSIDE RECORDS SUMMARY | 2025-07-15 15:22 | XMS_ITS | Clinical Summary ---
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
--- OUTSIDE RECORDS SUMMARY | 2025-07-15 15:22 | XMS_ITS | Clinical Summary ---
Author Organization [facility] Address [address] [place] [address] Care Team Providers Care Linen Keeper Name Role Phone Chalo Bartlett MD Primary Care Provider Source Comments [facility],non-owned Affiliates and Associated Physician Practices is amultiple site organization consisting of ambulatory clinics and hospital sitesin [place], [place], [place] and [place]. This disclosure is being madepursuant to the Care Everywhere program and may not contain all information available regarding this patient. 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 Not on [...] VACCINE (1 - 3-dose SCDM series) 2014 Cervical Cancer Screening 09/14/2015 PAP SMEAR 09/14/2015 09/14/2012 (Previously completed) PAP with HPV 2017 DTAP/TDAP/TD VACCINES (2 - T d or Tdap) 07/26/2023 07/26/2013 DEPRESSION SCREENING 08/14/2024 COVID-19 VACCINE (1 2024-2 6 season) 2025 INFLUENZA VACCINE (#1) 2025 , 06/14/2016, 06/14/2014 [...] patient's age to complete this topic Insurance [facility] * Guarantor: AMY VILLAFANA Account Type Relation to Patient Date of Phone Billing Address Personal/Family [address] [place] [address] SELF PAY NO INSURANCE Member Subscriber Plan / Payer (Ef fective for All Dates) Name:Amy Villafana Member ID:Not on file Relation to Subscriber:Not on file Name:AMY VILLAFANA Subscriber ID:Not on file Address: [address] [place] [address] [place] [address] Payer ID:Not on file Group ID:Not on file Type:Self Pay Address: [facility] Member Subscriber Plan / Payer (Ef fective 2025-Present) Name:Amy Villafana Relation to Subscriber:Spouse Name:DON VILLAFANA Subscriber ID:Not on file Date of :1982 Address: [address] [place] [address] Payer ID:[id number] (NAIC) Type:PPO Address: [address] * Guarantor: AMY VILLAFANA Account Type Relation to Patient Date of Phone Billing Address Personal/Family [address], [facility] SELF PAY NO INSURANCE Member Subscriber Plan / Payer (Ef fective for All Dates) Name:Amy Villafana Member ID:Not on file Relation to Subscriber:Not on file Name:AMY VILLAFANA Subscriber ID:Not on file Address: [address], [address] Payer ID:Not on file Group ID:Not on file Type:Self Pay Address: [facility] Member Subscriber Plan / Payer (Ef fective 2025-Present) Name:Amy Villafana Relation to Subscriber:Spouse Name:DON VILLAFANA Subscriber ID:Not on file Date of :1980 Address[address] [place] [address] Payer ID:[id number] (NAIC) Type:PPO Address: [address] * Guarantor: AMY VILLAFANA Account Type Relation to Patient Date of Phone Billing Address Personal/Family [address], [facility] SELF PAY NO INSURANCE Member Subscriber Plan / Payer (Ef fective for All Dates) Name:Amy Villafana Member ID:Not on file Relation to Subscriber:Not on file Name:AMY VILLAFANA Subscriber ID:Not on file Address: [address] [place] [id number] Payer ID:Not on file Group ID:Not on file Type:Self Pay Address: [facility] Care Teams Linen Keeper Relationship Specialty Start Date End Date Chalo Bartlett MD PCP - General Internal Medicine 08/25/14
--- OUTSIDE RECORDS SUMMARY | 2025-07-15 15:22 | XMS_ITS | Clinical Summary ---
Author Organization 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 # 2: 01/05/2019 37 4/7 weeks, DA/DC twins, SOOL, #1- , boy, Mitchell, 5#12, #2- double footling breech extraction, Ruben, 5#7, epidural, DW at [facility]. 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 Plan of Treatment Health Maintenance Due Date [...] patient's age to complete this topic Insurance [facility]/PPO Address: [address] [address] [place] [address] [place] [address] [facility]/PPO Address: [address] [address] [place] [address] [facility]/PPO Address: [address] [address] [place] [address] [facility]/PPO Address: [address] [address] [place] [address] Advance Directives For more information, please contact: [phone] * Full Code (Latest Code Status on File) Date Activated Date Inactivated Comments 01/05/2019 2:45 PM 01/07/2019 4:48 PM * Full Code Date Activated Date Inactivated Comments 01/04/2019 5:23 PM 01/05/2019 2:45 PM Full CPR in case of cardiopulmonary arrest Care Teams Macadam Raker Relationship Specialty Start Date End Date Jerri Ventura PA PCP - General Physician Casing Splitter 01/08/20
--- OUTSIDE RECORDS SUMMARY | 2025-07-15 15:22 | XMS_ITS | Continuity of Care Document ---
Author Organization [place] [facility], S[facility] Moe Ryder Address [address] [place] [address] Assessment Encounter Date Assessment Date Assessment LastModified by Organization Details LastModified Time 06/17/2025 06/17/2025 pap smear 2023: Dr. Alonso at [facility]. eye exam: overdue dental exam: UTD labs UTD with DR. Lagos. [email or web address] Not available 06/17/2025 14:55:34 Plan of Treatment Reminders Order Date Submit Date Provider Last Modified By Organization Details Last Modified Time Details Appointments ANY 15 2024 03:00P M KARLA Seaman Not available Not available Not available Lab CMP, serum or plasma 2024 025 [employer] [facility], [address], [place], [address], 07/08/2025 11:53:34 CBC w/ auto diff 2024 025 [employer] [facility], [address], [place], [address], 07/08/2025 11:53:34 vitamin B12 + folate, serum or blood 2024 025 [employer] [facility], [address], [place], [address], 07/08/2025 11:53:35 TSH + free T4, serum 2024 025 [employer] [facility], [address], [place], [address], 07/08/2025 11:53:35 lipid panel, serum 2024 025 [employer] [facility], [address], [address], [place], [address], 07/08/2025 11:53:34 HbA1c (hemoglob in A1c), blood 2024 025 [facility], [address], [address], [place], [address], 07/08/2025 11:53:34 Referral None recorded. Procedures None recorded. Surgeries None recorded. Imaging None recorded. Medication Orders fluoxetin e 60 mg tablet 2024 025 [email or web address] [facility] #[id number], [address] [place], [address], 06/17/2025 17:19:55 lamotrigi ne 25 mg tablet 2024 025 [id number], [address] [place], [address], 06/17/2025 15:03:31 Patient TargetsNo targets recorded. Patient InstructionsNo instructions recorded. Reason for Referral None Reported. Problems Name Problem SNOMED Code Status Onset Date Resolution Date Notes Provider Name and Address Organization Details Recorded Time Body mass index 20-24 - normal 265722364 Active 2023 Heidi Javed MA [facility], [place] - [facility] 4 10:04:51 Positive screening for depression on PHQ-9 (Patient Health Questionnai re 9) 2423897435496 00 Active 2023 KARLA Seaman Attn: Ann tinsley,[address] [place], [address], [facility] [place] - [facility] 5 01:20:05 Long-term drug therapy Active 2023 KARLA Seaman Attn: Ann tinsley,[address] [facility], [place], [address], [place] [facility] 4 23:47:39 Generalized anxiety disorder 88207489 Active 2023 KARLA Seaman Attn: Ann g,[address] [facility], [place], [address], [place] [facility] 4 23:48:04 Mood disorder 05049387 Active 2024 KARLA Seaman Attn: Ann g,[address] [facility], [place], [address], [place] [facility] 5 01:20:03 Normal weight 92750524 Active 2024 KARLA Seaman Attn: Ann tinsley,[address] [facility], [place], [address], [place] [facility] 5 01:20:06 Problem Notes None recorded. Procedures Surgical History Date Name Laterality Status Provider Name and Address Organization Details Recorded Time Appendectomy completed Heidi Javed [place] 05/07/2024 10:03:48 Tonsillectomy completed Heidi Javed MA [facility] 05/07/2024 10:03:52 D & c after delivery completed Heidi Javed [place] 05/07/2024 10:04:05 Imaging Results None recorded. Procedure Notes None recorded. Medical Equipment None Reported. Allergies Allergen ID Allergen Name Allergen Category Reaction Reaction Severity Criticality Documentation Date Start Date Code Code System Note Provider Name and Address Organization Details Recorded Time 195991 cephalexi n medicatio n hives rash Not available Not available high 05/07/20242016 2231 [employer] Heidi Javed MA null, [place] - [facility] 5 14:44:55 Medications Name Sig Start Date Stop Date Status Note LastModified by Organization Details LastModified Time fluoxetine 40 mg capsule Take 1 capsule every day by oral route for 90 days. 06/17 completed Not Available Not Available Not Available clobetasol 0.05 % topical cream APPLY THIN LAYER TO AFFECTED AREAS TWICE A DAY X 2 WEEKS, NEEDED FOR RASH active Not Available Not Available No t Available dextroamphe tamine sulfate 10 mg tablet Take 1 tablet twice a day by oral route. 05/07 completed prn Not Available Not Available Not Available lamotrigine 25 mg tablet PLEASE SEE ATTACHED FOR DETAILED DIRECTION S active Not Available Not Available No t Available amoxicillin 875 mg tablet TAKE 1 TABLET BY MOUTH EVERY 12 HOURS FOR 10 DAYS 06/14 completed Not Available Not Available Not Available clobetasol 0.05 % scalp solution PLEASE SEE ATTACHED FOR DETAILED DIRECTION S active Not Available Not Available No t Available fluoxetine 20 mg capsule TAKE 3 CAPSULES BY MOUTH EVERY DAY active Not Available Not Available No t Available amoxicillin 875 mg-potassiu m clavulanate 125 mg tablet TAKE 1 TABLET BY MOUTH EVERY 12 HOURS FOR 5 DAYS 06/14 completed Not Available Not Available Not Available clobetasol 0.05 % shampoo PLEASE SEE ATTACHED FOR DETAILED DIRECTION S active Not Available Not Available No t Available Xyzal 5 mg tablet Take 1 tablet every day by oral route. active Not Available Not Available No t Available fluoxetine 60 mg tablet Take 1 tablet every day by oral route. 2024 active Not Available Not Available Not Avai lable testosteron e 200 mg implant pellet Take by implantat ion route. 06/17 completed Not Available Not Available Not Available Ozempic 1 mg/dose (4 mg/3 mL) subcutaneou s pen injector Inject by subcutane ous route. 05/07 completed Not Available Not Available Not Available semaglutide (weight loss) 1 mg/0.5 mL subcutaneou s pen injector Inject 1 mg every week by subcutane ous route. active dr. mike bean Not Available Not Available Not Available Dupixent 200 mg/1.14 mL subcutaneou s pen injector Inject by subcutane ous route. active Not Available Not Available No t Available Vitals Date Recorded Systolic And Diastolic Provider Name and Address Organization Details Last Updated DateTime 06/17/2025 100/70 mm[Hg] KARLA Seaman Attn: Accounting,[address] [place], [address], [place] - [facility] 06/17/2025 15:03:23 Date Recorded Body height Body mass index (BMI) Body weight Respiratory rate Oxygen saturation Heart rate Systolic And Diastolic Provider Name and Address Organization Details Last Updated DateTime 170.18 cm 21.9 kg/m2 00738.9 3 g 18 /min 99 % 82 /min 108/72 mm[Hg] Heidi Javed MA [place] - [facility] 14:47:23 Social History Question Answer Notes LastModified by Organizat ion Details LastModified Time Tobacco Smoking Status Former Smoker quit 6 years ago Heidi Javed MA null, [facility] 05/07/2024 10:03:18 Do You Have An Advance [...] Date Of Your Most Recent Tobacco Screening? 06/17/2025 Information not available 06/17/2025 What Is Your Current Pack Years? 10packyears [...] 05/07/2024 Are you able to care for yourself independently? Yes Information not available 05/07/2024 What is [...] 0 Living 2 Ectopics 0 Total 3 Immunizations Vaccine Type Date Status Note Provider Nam e and Address Organization Details Recorded Time Hep B, adolescent or pediatric 7 completed Not Available [facility] 06/17/2025 14:11:59 Hep B, adolescent or pediatric 7 completed Not Available [facility] 06/17/2025 14:11:59 Tdap 3 completed Not Available [facility] 06/17/2025 14:11:59 Influenza, MDCK, quadrivalent, preservative 9 completed Not Available [facility] 06/17/2025 14:11:59 Influenza, split virus, quadrivalent, PF 0 completed Not Available [facility] 06/17/2025 14:11:59 Influenza, split virus, quadrivalent, PF 1 completed Not Available [facility] 06/17/2025 14:11:59 COVID-19, mRNA, LNP-S, PF, 30 mcg/0.3 mL dose 1 completed Not Available [facility] 06/17/2025 14:11:59 COVID-19, mRNA, LNP-S, PF, 30 mcg/0.3 mL dose 2 completed Not Available [facility] 06/17/2025 14:11:59 Influenza, split virus, quadrivalent, PF 2 completed Not Available [facility] 06/17/2025 14:11:59 Influenza, split virus, trivalent, PF 5 completed KARLA Seaman Attn: Accounting,[address] [place], [address], [facility] 07/10/2025 01:20:16 Past Encounters Encounter ID Performer Location Encounter Start Date Encounter Closed Date Diagnosis/Indication Diagnosis SNOMED-CT Code Diagnosis ICD10 Code Diagnosis IMO Codes Diagnosis Note [id number] KARLA Seaman [facility] [place] [address] [place] [address] 06/17/2025 14:10:10 06/17/2025 15:07:06 Positive screening for depression on PHQ-9 (Patient Health Questionnaire 9) 3411938459 33834 Z13.31 4331320049 score 24, fluoxetine increased to 40 mg on exam today Normal weight 16075554 Z 68.21 9332818932 Normal BMI Generalize d anxiety disorder 09972434 F41.1 Start fluoxetine 60 mg daily, noting dose increase from 40 mg. Cholesterol screening 27 2909118 Z13.220 Fasting lipid panel due Diabetes m ellitus screening 037762013 Z13.1 Annual diabetes screening ordered Long-term drug therapy 991323729 Z79.899 cmp, cbc and b12, folate labs are due Mood disorder 16698863 F 39 90269 There is a concern for underlying mood disorder perhaps bipolar variant. She has not done overly well with other SSRIs or SNRIs in the past. We are going to try a mood stabilizer in the way of lamotrigin e 25 mg titration as directed Requires i nfluenza virus vaccination 410280070 Z23 9350800 Flu shot given today Health Concerns Section Related Observation LastModified by Organization Detai ls LastModified Time None Recorded Concern Status LastModified by Organization Details LastModified Time None Recorded Payers Encounter Date Sequence Insurance Name Policy Number Policy Fraser Covered Member ID Fraser Member ID Guarantor Name 06/17/2025 1 [facility] [id number] Eron Villafana [id number] Martine Broderick Notes Date Note Type Note Provider Name and Address Organization Details Recorded Time 5 text/html Anxiety/DepressionReport ed by PatientHPIFor quality, patient reportsmood worse,increased anxiety, andpanic symptoms. For severity, patient reportsinterference with household activities,interference with sleep, andinterference with workbut reportsdenies suicidal ideationsandable to maintain relationships. For context, patient reportsmajor life stressors. For associated symptoms, patient reportsemotional lability,depression,inso mnia,restlessness/agitat ion,sleep disturbances,anxiety with muscle tension, anddecreased effectiveness/productivi tybut reportsdenies homicidal ideations,no significant weight gain,no significant weight loss,no visual/auditory hallucinations, andno delusions. For duration, patient reportsfrequentandsympto ms lasting over 2 weeks. For onset/timing, patient reportsstill present. KARLA Seaman Attn: Accounting,[address] [facility], [place], [address], [place] [facility] 07/10/2025 01:20:49 OBGyn Episode No OBEpisode recorded.
--- OUTSIDE RECORDS SUMMARY | 2025-07-15 15:22 | XMS_ITS | Data Portability ---
Author Organization [facility] Address [address] [place] [address] Assessment Encounter Date Assessment Date Assessment LastModified by Organization Details LastModified Time 05/07/2024 05/07/2024 pap smear 2023: Dr. Alonso at [facility]. eye exam: overdue dental exam: UTD labs UTD with DR. Lagos. Not available 05/07/2024 10:30:33 06/17/2025 06/17/2025 pap smear 2023: Dr. Alonso at [facility]. eye exam: overdue dental exam: UTD labs UTD with DR. Lagos. Not available 06/17/2025 14:55:34 Plan of Treatment Reminders Order Date Submit Date Provider Last Modified By Organization Details Last Modified Time Details Appointments ANY 15 2024 03:00P M KARLA Seaman Not available Not available Not available Lab CMP, serum or plasma 2024 025 [facility], [address], [place], [address], 07/08/2025 11:53:34 CBC w/ auto diff 2024 025 [email or web address], [address], [place], [address], 07/08/2025 11:53:34 vitamin B12 + folate, serum or blood 2024 025 [facility], [place], [address], 07/08/2025 11:53:35 TSH + free T4, serum 2024 025 [employer] [employer] [facility], [address], [address], [place], [address], 07/08/2025 11:53:35 lipid panel, serum 2024 025 [employer] [facility], [address], [address], [place], [address], 07/08/2025 11:53:34 HbA1c (hemoglob in A1c), blood 2024 025 [employer] [facility], [address], [address], [place], [address], 07/08/2025 11:53:34 CMP, serum or plasma 2023 024 [facility], [address], [address], [place], [address], 01/14/2025 15:25:00 CBC w/ auto diff 2023 024 [facility], [address], [address], [place], [address], 01/14/2025 15:25:05 vitamin B12 + folate, serum or blood 2023 024 [facility], [address], [address], [place], [address], 01/14/2025 15:24:53 lipid panel, serum 2023 024 [facility], [address], [place], [address], 01/14/2025 15:25:14 HbA1c (hemoglob in A1c), blood 2023 024 [facility], [address], [place], [address], 01/14/2025 15:25:10 Referral None recorded. Procedures None recorded. Surgeries None recorded. Imaging None recorded. Medication Orders fluoxetin e 60 mg tablet 2024 025 [email or web address] [facility]armacy #[id number], [address] [place], [address], 06/17/2025 17:19:55 lamotrigi ne 25 mg tablet 2024 025 [facility]armacy #3259, [address] [place], [address], 06/17/2025 15:03:31 fluoxetin e 40 mg capsule 2023 024 [email or web address]arm[facility] #3259, [address] [place], [address], 06/17/2025 14:57:43 Patient TargetsNo targets recorded. Patient InstructionsNo instructions recorded. Reason for Referral None Reported. Problems Name Problem SNOMED Code Status Onset Date Resolution Date Notes Provider Name and Address Organization Details Recorded Time Body mass index 20-24 - normal 906717932 Active 2023 Heidi Javed MA [facility] [place], [place] - [facility] 4 10:04:51 Positive screening for depression on PHQ-9 (Patient Health Questionnai re 9) 5044838285142 00 Active 2023 KARLA Seaman Attn: Ann tinsley,[address] [place], [address], [place] - [facility] 5 01:20:05 Long-term drug therapy Active 2023 KARLA Seaman Attn: Ann tinsley,[address] [facility], [place], [address], [facility] - [facility] 4 23:47:39 Generalized anxiety disorder 98451432 Active 2023 KARLA Seaman Attn: Ann g,[address] [facility], [place], [address], [facility] - SI 4 23:48:04 Mood disorder 35423966 Active 2024 KARLA eSaman Attn: Ann g,[address] [facility], [place], [address], [facility] - SI 5 01:20:03 Normal weight 38955034 Active 2024 KARLA Seaman Attn: Ann g,[address] [facility], [place], [address], [facility] - SI 5 01:20:06 Problem Notes None recorded. Procedures Surgical History Date Name Laterality Status Provider Name and Address Organization Details Recorded Time Appendectomy completed Heidi Javed MA [facility] 05/07/2024 10:03:48 Tonsillectomy completed Heidi Javed MA [facility] 05/07/2024 10:03:52 D & c after delivery completed Heidi Javed MA [facility] 05/07/2024 10:04:05 Imaging Results None recorded. Procedure Notes None recorded. Medical Equipment None Reported. Allergies Allergen ID Allergen Name Allergen Category Reaction Reaction Severity Criticality Documentation Date Start Date Code Code System Note Provider Name and Address Organization Details Recorded Time 127584 cephalexi n medicatio n hives rash Not available Not available high 05/07/20242016 2231 Rx[facility] Heidi Javed MA null, [place] - [facility] 5 14:44:55 Medications Name Sig [...] Address Organization Details Last Updated DateTime 05/07/2024 90/70 mm[Hg] KARLA Seaman Attn: Accounting,[address] [facility], [place], [address], [place] - [facility] 05/07/2024 10:28:37 Date Recorded Body weight Body mass index (BMI) Body height Oxygen saturation Heart rate Respiratory rate Systolic And Diastolic Provider Name and Address Organization Details Last Updated DateTime 4 65305.3 8 g 22.6 kg/m2 170.18 cm 99 % 91 /min 18 /min 120/72 mm[Hg] Heidi Javed MA [facility] 4 10:06:05 Date Recorded Systolic And Diastolic Provider Name and Address Organization Details Last Updated DateTime 06/17/2025 100/70 mm[Hg] KARLA Seaman Attn: Accounting,[address] [facility], [place], [address], [facility] 06/17/2025 15:03:23 Date Recorded Body height Body mass index (BMI) Body weight Respiratory rate Oxygen saturation Heart rate Systolic And Diastolic Provider Name and Address Organization Details Last Updated DateTime 170.18 cm 21.9 kg/m2 91850.9 3 g 18 /min 99 % 82 /min 108/72 mm[Hg] Heidi Javed MA [facility] 5 14:47:23 Social History Question Answer Notes LastModified by Organizat ion Details LastModified Time Tobacco Smoking Status Former Smoker quit 6 years ago Heidi Javed MA null, [facility] 05/07/2024 10:03:18 Do You Have [...] adolescent or pediatric 7 completed Not Available [facility] 06/17/2025 14:11:59 Hep B, adolescent or pediatric 7 completed Not Available [facility] 06/17/2025 14:11:59 Tdap 3 completed Not Available [facility] 06/17/2025 14:11:59 Influenza, MDCK, quadrivalent, preservative 9 completed Not Available [facility] 06/17/2025 14:11:59 Influenza, split virus, quadrivalent, PF 0 completed Not Available [facility] 06/17/2025 14:11:59 Influenza, split virus, quadrivalent, PF 1 completed Not Available [facility] 06/17/2025 14:11:59 COVID-19, mRNA, LNP-S, PF, 30 mcg/0.3 mL dose 1 completed Not Available [facility] 06/17/2025 14:11:59 COVID-19, mRNA, LNP-S, PF, 30 mcg/0.3 mL dose 2 completed Not Available [facility] 06/17/2025 14:11:59 Influenza, split virus, quadrivalent, PF 2 completed Not Available [facility] 06/17/2025 14:11:59 Influenza, split virus, trivalent, PF 5 completed KARLA Seaman Attn: Accounting[address] [place], [address], [facility] 07/10/2025 01:20:16 Past Encounters Encounter ID Performer Location Encounter Start Date Encounter Closed Date Diagnosis/Indication Diagnosis SNOMED-CT Code Diagnosis ICD10 Code Diagnosis IMO Codes Diagnosis Note [id number] Junito Chen MD [facility] e - [employer] [address] [place] [address] 05/07/2024 09:52:02 05/07/2024 10:35:53 Body mass index 20-24 - normal 725982230 Z68.22 BMI is 22.6, semaglutid e compound is really not needed at this time Generalize d anxiety disorder 74774458 F41.1 Boost to fluoxetine 40 mg daily for added at generalize d anxiety management Cholesterol screening 27 7552442 Z13.220 Fasting lipid panel due Diabetes m ellitus screening 865767460 Z13.1 Annual diabetes screening ordered Long-term drug therapy 728058622 Z79.899 cmp, cbc and b12, folate labs are due Adult heal th examination 170649379 Z00.01 Annual wellness exam completed Positive s creening for depression on PHQ-9 (Patient Health Questionnaire 9) Z13.31 score 19, fluoxetine increased to 40 mg on exam today [id number] KARLA Seaman [facility] e - Moe Ryder [address] [place] [address] 06/17/2025 14:10:10 06/17/2025 15:07:06 Positive screening for depression on PHQ-9 (Patient Health Questionnaire 9) 9224557096 19100 Z13.31 9744811909 score 24, fluoxetine increased to 40 mg on exam today Normal weight 62609278 Z 68.21 3389821855 Normal BMI Generalize d anxiety disorder 04110643 F41.1 Start fluoxetine 60 mg daily, noting dose increase from 40 mg. Cholesterol screening 27 8187434 Z13.220 Fasting lipid panel due Diabetes m ellitus screening 224717903 Z13.1 Annual diabetes screening ordered Long-term drug therapy 434045280 Z79.899 cmp, cbc and b12, folate labs are due Mood disorder 92532737 F 39 [address]017 There is a concern for underlying mood disorder perhaps bipolar variant. She has not done overly well with other SSRIs or SNRIs in the past. We are going to try a mood stabilizer in the way of lamotrigin e 25 mg titration as directed Requires i nfluenza virus vaccination 465249546 Z23 9738178 Flu shot given today Health Concerns Section Related Observation LastModified by Organization Detai ls LastModified Time None Recorded Concern Status LastModified by Organization Details LastModified Time None Recorded Advance Directives Directive N: Payers Insurance Date Sequence Insurance Name Policy Number Policy Fraser Covered Member ID Fraser Member ID Guarantor Name 07/14/2025 1 [facility] [id number] Eron Villafana [id number] Martine Villafana Notes Date Note Type Note Provider Name and Address Organization Details Recorded Time 4 text/html Anxiety/DepressionReport ed by PatientPatient has underlying anxiety is always elevated but a little bit higher than normal. She is interested in increasing her SSRI therapy dose. Patient is here for her wellness exam and labs. She reports she is taking compound semaglutide and testosterone pellets from a weight loss center KARLA Seaman Attn: Accounting,[address] [facility], [place], [address], [facility] 05/13/2024 23:48:27 text/html Anxiety/DepressionReport ed by PatientHPIFor quality, patient [...] reportsstill present. KARLA Seaman Attn: Accounting,[address] [facility], [place], [address], [facility] 07/10/2025 01:20:49 OBGyn Episode No OBEpisode recorded.
== END 2025-07-15 15:11 | disposition home or self-care (01) ==
PROVIDERS: Emergency Provider Nurse Practitioner; PCP Physician Assistant
DX: B34.9 Viral infection, unspecified (principal); Z20.822 Contact with and (suspected) exposure to COVID-19; K21.9 Gastro-esophageal reflux disease without esophagitis; F41.9 Anxiety disorder, unspecified; F32.A Depression, unspecified
CPT/HCPCS: 87081; 87426; 87804; 87880; 99213; G0463